=== PATIENT | female | born 1960 | race Hispanic/Latino ===

== ENCOUNTER 2017-12-02 08:47 | Outpatient (CLI) | payer BC | END 2017-12-02 08:48 | disposition home or self-care (01) | LOC: BICRAD 08:47 | PROVIDERS: ATTEND Internal Medicine Rheumatology | DX: M25.551 Pain in right hip (principal); M25.552 Pain in left hip; M06.00 Rheumatoid arthritis without rheumatoid factor, unspecified site; M47.898 Other spondylosis, sacral and sacrococcygeal region; M47.896 Other spondylosis, lumbar region | CPT/HCPCS: 72170 ==

== ENCOUNTER 2019-01-19 12:45 | Outpatient (CLI) | payer BC ==
--- NOTE | 2019-01-19 13:17 | RAD ---
Left RIBS 3 views HISTORY: Left chest wall pain. FINDINGS/IMPRESSION: No displaced rib fracture or pneumothorax are demonstrated.
== END 2019-01-19 12:46 | disposition home or self-care (01) ==
LOC: BICRAD 12:45
PROVIDERS: ATTEND Family Medicine
DX: R07.81 Pleurodynia (principal)

== ENCOUNTER 2019-02-16 12:16 | Outpatient (CLI) | payer BC ==
--- NOTE | 2019-02-16 13:31 | MRI ---
MR of the right shoulder without contrast INDICATION: Right shoulder pain. History of fall one week ago. TECHNIQUE: Sagittal T1, axial and coronal PD fat sat, sagittal and coronal T2 fat sat images were obt ained of the right shoulder. COMPARISON: None FINDINGS: Mild motion artifact limits image detail. Rotator cuff: There is a massive rotator cuff involving the supraspinatus and infraspinatus with retr action of the tendons to the level of the glenoid head. There is a partial-thickness articular surface tear involving the cranial to mid subscapularis at the footprint. The tear involves approxima tely 50% of the tendon thickness.. Glenohumeral joint: There is moderate chondrosis involving the anterior to central aspect of the tomy oid. There is moderate chondrosis involving the humeral head articular cartilage. Glenoid labrum: There is prominent degenerative fraying of the superior glenoid labrum. Biceps tendon and biceps anchor: The intra-articular long head of the biceps tendon is not visualized . There is metallic susceptibility artifact seen along the superior margin of the bicipital groove suspicious for prior long head of biceps tendon release and tenodesis. Acromion clavicular joint: There is severe AC joint osteoarthrosis with inferior and medial subluxati on of the clavicle in relationship to the acromial process, narrowing the subacromial outlet. The coracoclavicular ligaments appear intact. Subacromial subdeltoid space: Prominent fluid distention is seen within the subacromial subdeltoid bu rsa. Axillary region: No lymphadenopathy. Surrounding shoulder musculature: There is severe muscular atrophy of the supraspinatus and infraspin atus. IMPRESSION: 1. Massive rotator cuff tear involving the supraspinatus and infraspinatus with severe muscular atrop hy. 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 2. Findings most consistent with a prior biceps tenodesis. 3. High-grade partial thickness articular surface tear of the cranial to mid subscapularis tendon at the footprint. 4. Severe AC joint osteoarthrosis with inferior subluxation of the clavicular head in relationship to the acromion process likely either degenerative or posttraumatic in etiology. The clavicular head is subluxed inferior and medial in relationship to the acromial process narrowing the subacromial out let. 5. Some limitations to the exam as detailed above.
== END 2019-02-16 12:17 | disposition home or self-care (01) ==
LOC: SCSMRI 12:16
PROVIDERS: ATTEND Orthopaedic Surgery
DX: M25.511 Pain in right shoulder (principal); M75.101 Unspecified rotator cuff tear or rupture of right shoulder, not specified as traumatic; M62.511 Muscle wasting and atrophy, not elsewhere classified, right shoulder; M19.011 Primary osteoarthritis, right shoulder; S46.811A Strain of other muscles, fascia and tendons at shoulder and upper arm level, right arm, initial encounter; S43.119A Subluxation of unspecified acromioclavicular joint, initial encounter

== ENCOUNTER 2019-02-26 20:46 | Emergency (ER) | payer BC ==
[2019-02-26] MEDS ORDERED: Metoclopramide HCl 10 MG/2 ML VIAL ONE (21:14)
[2019-02-26] MEDS ORDERED: diphenhydrAMINE 50 MG/ML VIAL ONE (21:14)
[2019-02-26] MEDS ORDERED: Acetaminophen 500 MG TAB ONE (21:14)
--- NOTE | 2019-02-26 21:34 | CT ---
EXAM: CT brain without contrast HISTORY: Migraine headache for 4 days COMPARISON: 11/29/2005 TECHNIQUE: Multiple contiguous axial images were obtained and a CT of the brain without contrast. FINDINGS: The brain is normal in morphology and attenuation without focal lesions or confluent areas of infarction. There is no evidence of hydrocephalus, intracranial hemorrhage, or extra-axial fluid collection. The calvarium and overlying soft tissues are unremarkable. The visualized paranasal sinuses and masto id air cells are well aerated. IMPRESSION: No evidence of acute intracranial abnormality
== END 2019-02-26 22:40 | disposition home or self-care (01) ==
LOC: ERS 20:46
DX: R51 Headache (principal); F41.9 Anxiety disorder, unspecified
CPT/HCPCS: 70450; 96365; 96375; J1200; J2765

== ENCOUNTER 2020-09-03 12:26 | Emergency (ER) | payer BC, SELFPAY ==
[2020-09-03] MEDS ORDERED: Meclizine HCl 25 MG TAB ONE (12:47)
[2020-09-03 13:13] LABS: #Eosinphils 0.1 thou/uL (0.0-0.7); #Lymphocytes 1.6 thou/uL (1.20-3.40); #Monocytes 0.4 thou/uL (0.11-0.59); #Neutrophils 3.5 thou/uL (1.40-6.50); %Basophils 0.7 % (0.0-1.0); %Eosinophils 1.9 % (0.0-10.0); %Monocytes 7.8 % (0.0-10.0); %Neutrophils 61.6 % (42.0-75.0); Hemoglobin 14.4 g/dL (12.0-16.0); Mean Corpuscular HGB CONC 33.6 g/dL (32.0-36.0); Mean Corpuscular Hemoglobin 31.8 pg (27.0-31.0); Mean Corpuscular Volume 94.6 fL (78.0-98.0); Mean Platelet Volume 7.2 fL (7.4-10.4); Platelet Count 317 thou/uL (130-400); RBC Distribution Width 11.7 % (11.5-14.5); Red Blood Cell (RBC) Count 4.52 mill/uL (4.20-5.40); White Blood Cell (WBC) Count 5.7 thou/uL (4.8-10.8)
[2020-09-03 13:33] LABS: ALT (SGPT) 19 U/L (8-55); AST (SGOT) 20 U/L (5-34); Alkaline Phosphatase 80 U/L (40-110); Anion Gap 15 mmol/L (10-20); BUN (Urea Nitrogen) 19 mg/dL (9.8-20.1); Bilirubin, Total 0.9 mg/dL (0.2-1.2); Calc. Creatinine Clearance 0 mL/min (70-130); Calcium 9.2 mg/dL (7.8-10.44); Carbon Dioxide 26 mmol/L (22-29); Chloride 103 mmol/L (98-107); Globulin 3.6 g/dL (2.4-3.5); Glucose 84 mg/dL (70-105); Protein, Total 7.6 g/dL (6.0-8.3); Sodium 139 mmol/L (136-145)
--- NOTE | 2020-09-03 14:06 | CT ---
CT OF BRAIN PERFORMED WITHOUT CONTRAST ENHANCEMENT: History Headache and syncope. COMPARISON: A 03/15/2019 exam. FINDINGS: The ventricular and cisternal system is within normal limits. No signs of intracerebral hemorrhage o r extraaxial fluid collections. Mastoid air cells and visualized sinuses are clear. IMPRESSION: No acute intracranial abnormalities. POS: [facility]
[2020-09-04 02:15] LABS: SARS-CoV-2 MS2 Positive; SARS-CoV-2 N Gene Negative; SARS-CoV-2 S Gene Negative; SARS-CoV-2 by NAA Not Detected (NotDetected); SARS-CoV-2 orf1ab Negative
== END 2020-09-03 14:43 | disposition home or self-care (01) ==
LOC: ERS 12:26
DX: R42 Dizziness and giddiness (principal); J06.9 Acute upper respiratory infection, unspecified; Z20.828 Contact with and (suspected) exposure to other viral communicable diseases
CPT/HCPCS: 36415; 70450; 80053; 84443; 84484; 85025; 87635; 93005; U0003

== ENCOUNTER 2020-12-24 08:46 | Inpatient (IN) | payer SELFPAY ==
[2020-12-24] MEDS ORDERED: Ondansetron PF 4 MG/2 ML Vial ONE ×2 (08:58→11:00)
[2020-12-24] MEDS ORDERED: Fentanyl 100 MCG/2 ML VIAL ONE ×2 (08:58→13:02)
[2020-12-24 09:39] LABS: #Eosinphils 0.1 thou/uL (0.0-0.7); #Lymphocytes 2.3 thou/uL (1.20-3.40); #Monocytes 0.8 thou/uL (0.11-0.59); #Neutrophils 7.6 thou/uL (1.40-6.50); %Basophils 0.3 % (0.0-1.0); %Eosinophils 1.3 % (0.0-10.0); %Lymphocytes 21.2 % (21.0-51.0); %Monocytes 7.5 % (0.0-10.0); %Neutrophils 69.8 % (42.0-75.0); Hemoglobin 10.1 g/dL (12.0-16.0); Mean Corpuscular HGB CONC 32.8 g/dL (32.0-36.0); Mean Corpuscular Hemoglobin 31.6 pg (27.0-31.0); Mean Corpuscular Volume 96.4 fL (78.0-98.0); Mean Platelet Volume 7.3 fL (7.4-10.4); Platelet Count 228 thou/uL (130-400); RBC Distribution Width 11.6 % (11.5-14.5); Red Blood Cell (RBC) Count 3.21 mill/uL (4.20-5.40); White Blood Cell (WBC) Count 10.9 thou/uL (4.8-10.8)
[2020-12-24 09:54] LABS: INR-International Normal Ratio 1.3; Prothrombin Time 16.8 sec (12.0-14.7)
[2020-12-24 09:54] LABS: Bacteria/HPF None Seen HPF (None Seen); Bilirubin Negative (Negative); Blood, Urine Trace (Negative); Clarity Clear (Clear); Glucose, Urine (Dipstick) 100 mg/dL (Negative); Ketone, Urine Negative (Negative); Leukocyte Negative Leu/uL (Negative); Nitrite Negative (Negative); Protein, Urine (Dipstick) 10 mg/dL (Neg-Trace); RBC/HPF 0-3 HPF (0-3); Specific Gravity, Urine 1.023 (1.002-1.036); Squamous Epithelial 0-3 HPF (0-3); Urobilinogen Normal mg/dL (Less than 2); WBC/HPF 0-3 HPF (0-3); pH, Urine 6.5 (5.0-9.0)
[2020-12-24 09:55] LABS: PTT 21.4 sec (22.9-36.1)
[2020-12-24 10:12] LABS: ALT (SGPT) 24 U/L (8-55); AST (SGOT) 25 U/L (5-34); Albumin 2.4 g/dL (3.5-5.0); Alkaline Phosphatase 53 U/L (40-110); Anion Gap 15 mmol/L (10-20); BUN (Urea Nitrogen) 23 mg/dL (9.8-20.1); Bilirubin, Total 0.5 mg/dL (0.2-1.2); CK (CPK) 36 U/L (29-168); Calc. Creatinine Clearance 0 mL/min (70-130); Calcium 6.9 mg/dL (7.8-10.44); Carbon Dioxide 18 mmol/L (22-29); Chloride 109 mmol/L (98-107); Globulin 2.4 g/dL (2.4-3.5); Glucose 195 mg/dL (70-105); Lipase 30 U/L (8-78); Potassium 4.7 mmol/L (3.5-5.1); Protein, Total 4.8 g/dL (6.0-8.3); Sodium 137 mmol/L (136-145)
[2020-12-24] MEDS ORDERED: Fentanyl 250 MCG/5 ML VIAL ONE (10:26)
[2020-12-24] MEDS ORDERED: Norepinephrine 4 MG/4 ML VIAL ONE (10:47)
[2020-12-24] MEDS ORDERED: Phenylephrine 10 MG/ML VIAL ONE (10:47)
[2020-12-24] MEDS ORDERED: Glycopyrrolate 0.2 MG/ML 5 ML SYRINGE ONE (11:00)
[2020-12-24] MEDS ORDERED: Labetalol HCl 100 MG/20 ML VIAL ONE (11:00)
[2020-12-24] MEDS ORDERED: Calcium Chloride 1 GM/10 ML Abboject SYRINGE ONE (11:00)
[2020-12-24] MEDS ORDERED: Succinylcholine 200 MG/10 ml SYRINGE FS ONE (11:00)
[2020-12-24] MEDS ORDERED: PROPOFOL 200 MG/20 ML VIAL ONE (11:00)
[2020-12-24] MEDS ORDERED: diphenhydrAMINE 50 MG/ML VIAL ONE (11:00)
[2020-12-24 11:43] LABS: SARS-CoV-2 NAA Rapid Test Not Detected (NotDetected)
[2020-12-24] MEDS ORDERED: SUGAMMADEX SODIUM 200 MG/2 ML VIAL ONE (12:26)
[2020-12-24] MEDS ORDERED: Zolpidem Tartrate 5 MG TAB PO PRN (12:38)
[2020-12-24] MEDS ORDERED: diphenhydrAMINE 50 MG/ML VIAL IVP PRN (12:38)
[2020-12-24] MEDS ORDERED: HYDROmorphone 10 mg/100 ml CADD IVPB PRN (12:38)
[2020-12-24] MEDS ORDERED: Promethazine HCl 25 MG/ML VIAL IM PRN ×2 (12:38→15:14)
[2020-12-24] MEDS ORDERED: diphenhydrAMINE 25 MG CAP PO PRN (12:38)
[2020-12-24] MEDS ORDERED: Naloxone HCl 0.4 mg/ml Vial IV PRN (12:38)
[2020-12-24] MEDS ORDERED: diphenhydrAMINE 50 MG/ML VIAL IM PRN (12:38)
[2020-12-24] MEDS ORDERED: Communication Order-Pharmacy FS SCH (12:45)
[2020-12-24] MEDS ORDERED: Dextrose 5% in Water 1,000 ML IV PRN (15:14)
[2020-12-24] MEDS ORDERED: Ondansetron PF 4 MG/2 ML Vial IVP PRN (15:14)
[2020-12-24] MEDS ORDERED: Dextrose 50% Abboject 50 ML SYRINGE SLOW IVP PRN (15:14)
[2020-12-24] MEDS ORDERED: hydrALAZINE 20 MG/ML VIAL SLOW IVP PRN (15:14)
[2020-12-24] MEDS: D5 1/2 NS w/20 mEq KCL 1,000 ML IV SCH (16:14)
[2020-12-24 16:15] VITALS: BMI 32.2
[2020-12-24 17:19] LABS: Hemoglobin 14.8 g/dL (12.0-16.0)
[2020-12-24] MEDS: Famotidine 20 MG TAB PO SCH (21:40)
[2020-12-24] MEDS: Famotidine/PF 20 mg/2ml Vial SLOW IVP SCH (21:43)
[2020-12-25] MEDS: D5 1/2 NS w/20 mEq KCL 1,000 ML IV SCH ×4 (03:07→19:50)
[2020-12-25 05:52] LABS: Anion Gap 10 mmol/L (10-20); BUN (Urea Nitrogen) 13 mg/dL (9.8-20.1); Calc. Creatinine Clearance 86 mL/min (70-130); Calcium 7.5 mg/dL (7.8-10.44); Carbon Dioxide 23 mmol/L (22-29); Chloride 100 mmol/L (98-107); Glucose 136 mg/dL (70-105); Potassium 4.2 mmol/L (3.5-5.1); Sodium 129 mmol/L (136-145)
[2020-12-25 06:16] LABS: Mean Corpuscular Hemoglobin 29.4 pg (27.0-31.0); Mean Platelet Volume 7.8 fL (7.4-10.4); Platelet Count 204 thou/uL (130-400); RBC Distribution Width 14.7 % (11.5-14.5); Red Blood Cell (RBC) Count 5.08 mill/uL (4.20-5.40); White Blood Cell (WBC) Count 14.7 thou/uL (4.8-10.8)
[2020-12-25] MEDS: Famotidine 20 MG TAB PO SCH ×2 (07:44→19:49)
[2020-12-25] MEDS: Famotidine/PF 20 mg/2ml Vial SLOW IVP SCH ×2 (07:44→19:49)
[2020-12-25 07:55] LABS: Band 18 % (5-11); Lymphocytes 4 % (21-51); MDiff Complete? YES; Monocytes 9 % (0-10); Neutrophil 69 % (42-75)
[2020-12-25] MEDS ORDERED: Acetaminophen 500 MG TAB PO PRN (11:44)
[2020-12-25] MEDS ORDERED: Acetaminophen/Codeine 30-300mg Tablet PO PRN ×2 (15:53)
[2020-12-25] MEDS ORDERED: traMADol HCl 50 MG TAB PO PRN (16:15)
[2020-12-25] MEDS: traMADol HCl 50 MG TAB PO PRN ×2 (16:21→22:23)
[2020-12-25] MEDS: Acetaminophen 325 MG TAB PO PRN (17:45)
[2020-12-26] MEDS: Ondansetron PF 4 MG/2 ML Vial IVP PRN (05:24)
[2020-12-26] MEDS: Acetaminophen 325 MG TAB PO PRN ×3 (06:11→20:08)
[2020-12-26] MEDS: traMADol HCl 50 MG TAB PO PRN ×3 (06:12→20:08)
[2020-12-26] MEDS: Famotidine 20 MG TAB PO SCH ×2 (09:43→20:09)
[2020-12-26] MEDS: Famotidine/PF 20 mg/2ml Vial SLOW IVP SCH ×2 (09:47→20:09)
[2020-12-26 15:54] LABS: Actual Bicarbonate (HCO3a) 19.7 mEq/L (22-28); Analyzer IN Cardio OR; Base Excess (BEa) -5.3 mEq/L (-2.0 to +3.0); CO2 Tension 36.5 mmHg (35.0-45.0); Calcium, Ionized (arterial) 0.94 mmol/L (1.12-1.30); Carboxyhemoglobin (COHb) 0.3 gm% (0.0-3.0); Hemoglobin (Hb) 12.2 g/dL (12.0-16.0); O2 Tension (PaO2), arterial 292.2 mmHg (> 80.0); Potassium - ABG Lab 3.53 mmol/L (3.70-5.30); Puncture Site Arterial Line; pH, Arterial 7.35 (7.35-7.45)
[2020-12-27] MEDS: traMADol HCl 50 MG TAB PO PRN ×4 (02:03→21:23)
[2020-12-27] MEDS: Acetaminophen 325 MG TAB PO PRN ×4 (02:04→21:23)
[2020-12-27] MEDS: Famotidine/PF 20 mg/2ml Vial SLOW IVP SCH ×2 (08:05→19:18)
[2020-12-27] MEDS: Famotidine 20 MG TAB PO SCH ×2 (08:09→19:17)
[2020-12-27] MEDS ORDERED: Amlodipine 10 MG TAB PO SCH (09:00)
[2020-12-27] MEDS ORDERED: Losartan 25 MG TAB PO SCH (09:00)
[2020-12-27] MEDS: Carvedilol 25 MG TAB PO SCH ×2 (09:04→19:17)
[2020-12-27] MEDS ORDERED: Milk Of Magnesia 30 ML UDCUP PO SCH (11:15)
[2020-12-27] MEDS ORDERED: Acthib 0.5 ML VIAL IM ONE (13:00)
[2020-12-27] MEDS ORDERED: Meningococcal Vaccine 0.5ML VIAL (MENACTRA) IM ONE (13:00)
[2020-12-27] MEDS: Ondansetron PF 4 MG/2 ML Vial IVP PRN (15:27)
[2020-12-28] MEDS ORDERED: Prevnar 13-Val Conj/PF 0.5 ML SYRINGE IM ONE (09:00)
[2020-12-28] MEDS: Famotidine/PF 20 mg/2ml Vial SLOW IVP SCH (09:19)
[2020-12-28] MEDS: Carvedilol 25 MG TAB PO SCH (09:56)
[2020-12-28] MEDS: Famotidine 20 MG TAB PO SCH (09:56)
[2020-12-28] MEDS: traMADol HCl 50 MG TAB PO PRN (10:00)
[2020-12-28] MEDS: Acetaminophen 325 MG TAB PO PRN (10:01)
[2020-12-28 12:17] VITALS: BP 119/71; TEMP 97.6
== END 2020-12-28 12:10 | disposition home or self-care (01) | DRG 799 ==
LOC: ERS 08:46 → SDC 10:36 → CCU 11:00 → SJJU 11:10 → SURG A 12:30 → SJJU 15:03
PROVIDERS: ADMIT Surgery; ATTEND Surgery
PROC: 07BP0ZZ Excision of Spleen, Open Approach (ICD-10-PCS; principal; 2020-12-24)
DX: D73.5 Infarction of spleen (principal); R57.8 Other shock; M19.90 Unspecified osteoarthritis, unspecified site; G43.909 Migraine, unspecified, not intractable, without status migrainosus; F41.9 Anxiety disorder, unspecified; I10 Essential (primary) hypertension; Z90.49 Acquired absence of other specified parts of digestive tract; Z90.710 Acquired absence of both cervix and uterus; Z91.040 Latex allergy status; Z88.6 Allergy status to analgesic agent; Z88.0 Allergy status to penicillin; Z88.8 Allergy status to other drugs, medicaments and biological substances; Z79.899 Other long term (current) drug therapy; Z88.1 Allergy status to other antibiotic agents; Z20.822 Contact with and (suspected) exposure to COVID-19
CPT/HCPCS: 36415; 36430; 51701; 71045; 71275; 74018; 74174; 80048; 80053; 81003; 81015; 82550; 82805; 83605; 83690; 83880; 84484; 85025; 85610; 85730; 86850; 86900; 86901; 87040; 87149; 88305; 90471; 90648; 90670; 90733; 93005; 96374; 96375; G0009; J1200; J2370; J2405; J2550; J2704; J3010; J3480; P9016; P9035; P9059; Q0163; S0028; U0002

== ENCOUNTER 2021-07-13 08:48 | Outpatient (CLI) | payer BC ==
[2021-07-13 11:29] LABS: Anion Gap 14 mmol/L (10-20); BUN (Urea Nitrogen) 22 mg/dL (9.8-20.1); Calc. Creatinine Clearance 0 mL/min (70-130); Calcium 9.3 mg/dL (7.8-10.44); Carbon Dioxide 26 mmol/L (22-29); Chloride 106 mmol/L (98-107); Glucose 89 mg/dL (70-105); Sodium 141 mmol/L (136-145)
[2021-07-13 17:27] LABS: SARS-CoV-2 PCR by NAA Not Detected (NotDetected)
== END 2021-07-13 08:49 | disposition home or self-care (01) ==
LOC: LABBT 08:48
PROVIDERS: ATTEND Surgery
DX: Z01.812 Encounter for preprocedural laboratory examination (principal); K43.2 Incisional hernia without obstruction or gangrene; Z20.822 Contact with and (suspected) exposure to COVID-19
CPT/HCPCS: 80048; U0003; U0005

== ENCOUNTER 2021-07-18 08:02 | Day surgery (SDC) | payer BC ==
[2021-07-17 11:46] VITALS: BMI 35.2
[2021-07-18] MEDS ORDERED: ceFAZolin 2 GM/DEX 5% 100 ML BAG ONE (08:44)
[2021-07-18] MEDS ORDERED: Levofloxacin 500 mg/D5W 100 ml Premix Bag ONE (10:51)
[2021-07-18] MEDS ORDERED: Midazolam HCl 2 mg/2 ml Vial ONE (10:51)
[2021-07-18] MEDS ORDERED: Bupivacaine 0.25% HCL 30 ML VIAL ONE (11:07)
[2021-07-18] MEDS ORDERED: Lidocaine 1% w/Epinephrine 1:100K 20 ML VIAL ONE (11:07)
[2021-07-18] MEDS ORDERED: Fentanyl 100 MCG/2 ML VIAL ONE ×4 (11:08→14:37)
[2021-07-18] MEDS ORDERED: SUGAMMADEX SODIUM 200 MG/2 ML VIAL ONE (11:08)
[2021-07-18] MEDS ORDERED: Famotidine/PF 20 mg/2ml Vial ONE (11:08)
[2021-07-18] MEDS ORDERED: Ketorolac Tromethamine 30 MG/ML VIAL ONE (11:22)
[2021-07-18] MEDS ORDERED: Lidocaine 1% PF 5 ML VIAL ONE (11:22)
[2021-07-18] MEDS ORDERED: Ondansetron PF 4 MG/2 ML Vial ONE (11:22)
[2021-07-18] MEDS ORDERED: Metoclopramide HCl 10 MG/2 ML VIAL ONE (11:22)
[2021-07-18] MEDS ORDERED: PROPOFOL 200 MG/20 ML VIAL ONE (11:22)
[2021-07-18] MEDS ORDERED: Rocuronium Bromide 10 MG/ML (10ML VIAL) ONE (11:22)
== END 2021-07-18 16:07 | disposition home or self-care (01) ==
LOC: SDC 08:02
PROVIDERS: ATTEND Surgery
PROC: 0WUF4JZ Supplement Abdominal Wall with Synthetic Substitute, Percutaneous Endoscopic Approach (ICD-10-PCS; principal; 2021-07-18)
DX: K43.2 Incisional hernia without obstruction or gangrene (principal); E11.9 Type 2 diabetes mellitus without complications; E78.5 Hyperlipidemia, unspecified; I10 Essential (primary) hypertension; Z79.899 Other long term (current) drug therapy; Z88.0 Allergy status to penicillin; Z88.1 Allergy status to other antibiotic agents; Z88.5 Allergy status to narcotic agent; Z88.7 Allergy status to serum and vaccine; Z91.040 Latex allergy status; Z91.048 Other nonmedicinal substance allergy status
CPT/HCPCS: J1885; J1956; J2250; J2405; J2704; J2765; J3010; S0020; S0028

== ENCOUNTER 2021-09-27 09:15 | Outpatient (CLI) | payer BC | END 2021-09-27 09:16 | disposition home or self-care (01) | LOC: RAD 09:15 | PROVIDERS: ATTEND Internal Medicine Endocrinology, Diabetes & Metabolism | DX: M54.50 Low back pain, unspecified (principal); M81.0 Age-related osteoporosis without current pathological fracture; S62.101S Fracture of unspecified carpal bone, right wrist, sequela; M47.816 Spondylosis without myelopathy or radiculopathy, lumbar region | CPT/HCPCS: 72110 ==

== ENCOUNTER 2021-10-03 08:50 | Outpatient (CLI) | payer BC | END 2021-10-03 08:51 | disposition home or self-care (01) | LOC: BICMAMMO 08:50 | PROVIDERS: ATTEND Family Medicine | DX: Z12.31 Encounter for screening mammogram for malignant neoplasm of breast (principal); M81.0 Age-related osteoporosis without current pathological fracture; Z80.3 Family history of malignant neoplasm of breast; M85.852 Other specified disorders of bone density and structure, left thigh; M85.851 Other specified disorders of bone density and structure, right thigh | CPT/HCPCS: 77063; 77067; 77080 ==

== ENCOUNTER 2022-03-06 15:25 | Emergency (ER) | payer BC ==
[2022-03-06] MEDS ORDERED: Ketorolac Tromethamine 30 MG/ML VIAL ONE (19:58)
== END 2022-03-06 21:55 | disposition home or self-care (01) ==
LOC: ERS 15:25
DX: S82.002A Unspecified fracture of left patella, initial encounter for closed fracture (principal); M79.631 Pain in right forearm; I10 Essential (primary) hypertension; Z79.899 Other long term (current) drug therapy; W19.XXXA Unspecified fall, initial encounter
CPT/HCPCS: 27520; 96372; J1885

== ENCOUNTER 2023-03-20 08:18 | Outpatient (CLI) | payer BC ==
[2023-03-20] MEDS ORDERED: Iopamidol 370 76% 100 ML VIAL ONE (12:45)
== END 2023-03-20 08:19 | disposition home or self-care (01) ==
LOC: CT 08:18
PROVIDERS: ATTEND Surgery
DX: K43.2 Incisional hernia without obstruction or gangrene (principal); K44.9 Diaphragmatic hernia without obstruction or gangrene; K57.30 Diverticulosis of large intestine without perforation or abscess without bleeding; M47.816 Spondylosis without myelopathy or radiculopathy, lumbar region; M43.16 Spondylolisthesis, lumbar region; M48.061 Spinal stenosis, lumbar region without neurogenic claudication; K46.9 Unspecified abdominal hernia without obstruction or gangrene; Z98.890 Other specified postprocedural states
CPT/HCPCS: 74177; 82565; Q9967

== ENCOUNTER 2023-07-16 08:08 | Emergency (ER) | payer BC, MEDICAID, SELFPAY ==
[2023-07-16] MEDS ORDERED: Ondansetron PF 4 MG/2 ML Vial ONE (08:38)
[2023-07-16] MEDS ORDERED: fentaNYL 50 mcg/mL 1 mL Vial ONE ×2 (08:41→11:21)
[2023-07-16 08:48] LABS: #Basophils 0.1 thou/uL (0.0-0.2); #Eosinphils 0.2 thou/uL (0.0-0.7); #Monocytes 0.9 thou/uL (0.11-0.59); #Neutrophils 5.4 thou/uL (1.40-6.50); %Basophils 0.7 % (0.0-1.0); %Eosinophils 1.9 % (0.0-10.0); %Lymphocytes 21.8 % (21.0-51.0); %Neutrophils 64.1 % (42.0-75.0); Hematocrit 44.1 % (36.0-47.0); Hemoglobin 14.8 g/dL (12.0-16.0); Mean Corpuscular HGB CONC 33.6 g/dL (32.0-36.0); Mean Corpuscular Hemoglobin 30.8 pg (27.0-31.0); Mean Corpuscular Volume 91.7 fl (78.0-98.0); Mean Platelet Volume 8.8 fL (7.4-10.4); Platelet Count 441 10x3/uL (130-400); RBC Distribution Width 12.5 % (11.5-14.5); Red Blood Cell (RBC) Count 4.81 mill/uL (4.20-5.40); White Blood Cell (WBC) Count 8.4 10x3/uL (4.8-10.8)
[2023-07-16 09:19] LABS: Troponin I Less than 0.010 ng/mL (< 0.028)
[2023-07-16 09:30] LABS: ALT (SGPT) 23 U/L (8-55); Albumin 4.3 g/dL (3.4-4.8); Alkaline Phosphatase 65 U/L (40-110); BUN (Urea Nitrogen) 16 mg/dL (9.8-20.1); Bilirubin, Total 0.4 mg/dL (0.2-1.2); Calc. Creatinine Clearance 0 mL/min (70-130); Calcium 9.2 mg/dL (7.8-10.44); Carbon Dioxide 21 mmol/L (23-31); Chloride 98 mmol/L (98-107); Estimated GFR 73; Glucose 92 mg/dL (80-115); Lipase 56 U/L (8-78); Sodium 130 mmol/L (136-145)
[2023-07-16 09:39] LABS: Potassium 4.2 mmol/L (3.5-5.1)
[2023-07-16 09:40] LABS: Globulin 3.6 g/dL (2.4-3.5); Protein, Total 7.9 g/dL (5.8-8.1)
[2023-07-16 09:45] LABS: AST (SGOT) 22 U/L (5-34); Anion Gap 15 mmol/L (10-20)
== END 2023-07-16 12:56 | disposition home or self-care (01) ==
LOC: ERS 08:08
DX: C49.A2 Gastrointestinal stromal tumor of stomach (principal); I10 Essential (primary) hypertension; Z79.899 Other long term (current) drug therapy
CPT/HCPCS: 71045; 74177; 80053; 83605; 83690; 83735; 83880; 84484; 85025; 96374; 96375; 96376; J2405; J3010

== ENCOUNTER 2023-09-26 16:18 | Emergency (ER) | payer BC ==
[2023-09-26 17:13] LABS: #Basophils 0.1 thou/uL (0.0-0.2); #Eosinphils 0.2 thou/uL (0.0-0.7); #Monocytes 0.9 thou/uL (0.11-0.59); #Neutrophils 6.4 thou/uL (1.40-6.50); %Basophils 0.7 % (0.0-1.0); %Eosinophils 2.3 % (0.0-10.0); %Lymphocytes 16.1 % (21.0-51.0); %Monocytes 9.9 % (0.0-10.0); %Neutrophils 70.7 % (42.0-75.0); Hematocrit 43.9 % (36.0-47.0); Hemoglobin 14.6 g/dL (12.0-16.0); Mean Corpuscular HGB CONC 33.3 g/dL (32.0-36.0); Mean Corpuscular Hemoglobin 31.1 pg (27.0-31.0); Mean Corpuscular Volume 93.6 fl (78.0-98.0); Mean Platelet Volume 9.3 fL (7.4-10.4); Platelet Count 404 10x3/uL (130-400); RBC Distribution Width 13.4 % (11.5-14.5); Red Blood Cell (RBC) Count 4.69 mill/uL (4.20-5.40)
[2023-09-26 17:38] LABS: ALT (SGPT) 18 U/L (8-55); AST (SGOT) 19 U/L (5-34); Albumin 3.7 g/dL (3.4-4.8); Alkaline Phosphatase 73 U/L (40-110); Anion Gap 14 mmol/L (10-20); BUN (Urea Nitrogen) 19 mg/dL (9.8-20.1); Bilirubin, Total 0.4 mg/dL (0.2-1.2); Calc. Creatinine Clearance 0 mL/min (70-130); Carbon Dioxide 21 mmol/L (23-31); Chloride 103 mmol/L (98-107); Estimated GFR 80; Globulin 4.1 g/dL (2.4-3.5); Glucose 156 mg/dL (80-115); Lipase 47 U/L (8-78); Potassium 4.2 mmol/L (3.5-5.1); Protein, Total 7.8 g/dL (5.8-8.1); Sodium 134 mmol/L (136-145)
[2023-09-26] MEDS ORDERED: Ketorolac Tromethamine 30 MG (1 mL) VIAL ONE (19:25)
== END 2023-09-26 19:54 | disposition home or self-care (01) ==
LOC: ERS 16:18
DX: K43.9 Ventral hernia without obstruction or gangrene (principal); I10 Essential (primary) hypertension; Z79.899 Other long term (current) drug therapy
CPT/HCPCS: 36415; 74176; 80053; 83690; 85025; 96372; J1885

== ENCOUNTER 2023-10-02 06:06 | Inpatient (IN) | payer BC ==
[2023-10-01 10:37] VITALS: BMI 34.0
[2023-10-02] MEDS ORDERED: Lidocaine 1% PF 5 ML VIAL ONE (06:47)
[2023-10-02] MEDS ORDERED: Rocuronium Bromide 10 MG/ML (10ML VIAL) ONE (06:47)
[2023-10-02] MEDS ORDERED: PROPOFOL 20 ML ONE (06:47)
[2023-10-02] MEDS ORDERED: fentaNYL PF 100 MCG/2 ML SYRINGE ONE ×2 (06:47→10:39)
[2023-10-02] MEDS ORDERED: Midazolam HCl 2 mg/2 ml Vial ONE (07:31)
[2023-10-02] MEDS ORDERED: Scopolamine 1 mg/72 hour Patch ONE (07:31)
[2023-10-02] MEDS ORDERED: LevoFLOXacin D5W 500 mg (100 mL) BAG ONE (07:33)
[2023-10-02] MEDS ORDERED: diphenhydrAMINE 50 MG/ML VIAL ONE (07:49)
[2023-10-02] MEDS ORDERED: Dexamethasone 20 MG/5 ML VIAL ONE (08:07)
[2023-10-02] MEDS ORDERED: ePHEDrine Sulfate 50 MG/10 ML VIAL ONE (08:08)
[2023-10-02] MEDS ORDERED: fentaNYL 50 mcg/mL 1 mL Vial ONE ×3 (08:51→11:46)
[2023-10-02] MEDS ORDERED: Ondansetron PF 4 MG/2 ML Vial ONE (10:08)
[2023-10-02] MEDS ORDERED: Labetalol HCl 100 MG/20 ML VIAL ONE (10:08)
[2023-10-02] MEDS ORDERED: SUGAMMADEX SODIUM 200 MG/2 ML VIAL ONE (10:11)
[2023-10-02] MEDS ORDERED: Ondansetron HCl/PF 4 MG/2 ML Vial IVP PRN (10:25)
[2023-10-02] MEDS ORDERED: diphenhydrAMINE 50 MG/ML VIAL IVP PRN (10:25)
[2023-10-02] MEDS ORDERED: FENTANYL 500 MCG/10 ML VIAL 2,000 MCG in Sodium Chloride 0.9% 60 ML IV PRN (10:25)
[2023-10-02] MEDS ORDERED: Promethazine HCl 25 MG/ML VIAL IM PRN ×3 (10:25→16:40)
[2023-10-02] MEDS ORDERED: diphenhydrAMINE 25 MG CAP PO PRN (10:25)
[2023-10-02] MEDS ORDERED: diphenhydrAMINE 50 MG/ML VIAL IM PRN (10:25)
[2023-10-02] MEDS ORDERED: Naloxone HCl 0.4 mg/ml Vial IV PRN (10:25)
[2023-10-02] MEDS ORDERED: Ondansetron PF 4 MG/2 ML Vial IVP PRN (10:25)
[2023-10-02] MEDS ORDERED: Communication Order-Pharmacy FS PRN (10:30)
[2023-10-02] MEDS ORDERED: D5 1/2 NS w/20 mEq KCL 1,000 ML ONE (11:09)
[2023-10-02] MEDS ORDERED: hydrALAZINE 20 MG/ML VIAL ONE (11:25)
[2023-10-02] MEDS: D5 1/2 NS w/20 mEq KCL 1,000 ML IV SCH ×2 (13:00→22:04)
[2023-10-02] MEDS ORDERED: Ipratropium/Albuterol 3 ML NEB NEB PRN (16:40)
[2023-10-02] MEDS ORDERED: Glucagon 1 MG/ML KIT IM PRN (16:40)
[2023-10-02] MEDS ORDERED: hydrALAZINE 20 MG/ML VIAL SLOW IVP PRN (16:40)
[2023-10-02] MEDS ORDERED: Dextrose 5% in Water 1,000 ML IV PRN (16:40)
[2023-10-02] MEDS ORDERED: Albuterol 200 PUFF (6.7GM INHALER) INH PRN (16:40)
[2023-10-02] MEDS ORDERED: Dextrose 50% Abboject 50 ML SYRINGE SLOW IVP PRN (16:40)
[2023-10-02] MEDS ORDERED: Ketorolac Tromethamine 30 MG (1 mL) VIAL IVP SCH (20:30)
[2023-10-02] MEDS: Carvedilol 25 MG TAB PO SCH (20:35)
[2023-10-02] MEDS: Famotidine 20 MG TAB PO SCH (20:35)
[2023-10-02] MEDS: DULoxetine 30 MG CAP PO SCH (20:35)
[2023-10-02] MEDS: risperiDONE 0.25 MG TAB PO SCH (20:35)
[2023-10-02] MEDS: Famotidine/PF 20 mg/2ml Vial SLOW IVP SCH (20:40)
[2023-10-02] MEDS ORDERED: clonazePAM 0.5 MG TAB PO SCH ×2 (21:00)
[2023-10-03] MEDS: D5 1/2 NS w/20 mEq KCL 1,000 ML IV SCH (06:20)
[2023-10-03 06:44] LABS: #Monocytes 1.5 thou/uL (0.11-0.59); #Neutrophils 9.3 thou/uL (1.40-6.50); %Basophils 0.2 % (0.0-1.0); %Eosinophils 0.2 % (0.0-10.0); %Lymphocytes 13.7 % (21.0-51.0); %Monocytes 11.6 % (0.0-10.0); %Neutrophils 73.9 % (42.0-75.0); Hematocrit 36.8 % (36.0-47.0); Hemoglobin 12.2 g/dL (12.0-16.0); Mean Corpuscular HGB CONC 33.2 g/dL (32.0-36.0); Mean Corpuscular Hemoglobin 30.7 pg (27.0-31.0); Mean Corpuscular Volume 92.7 fl (78.0-98.0); Mean Platelet Volume 9.3 fL (7.4-10.4); Platelet Count 337 10x3/uL (130-400); RBC Distribution Width 13.1 % (11.5-14.5); Red Blood Cell (RBC) Count 3.97 mill/uL (4.20-5.40); White Blood Cell (WBC) Count 12.6 10x3/uL (4.8-10.8)
[2023-10-03 07:08] LABS: Anion Gap 11 mmol/L (10-20); BUN (Urea Nitrogen) 12 mg/dL (9.8-20.1); Calc. Creatinine Clearance 96 mL/min (70-130); Calcium 7.6 mg/dL (7.8-10.44); Carbon Dioxide 24 mmol/L (23-31); Chloride 94 mmol/L (98-107); Estimated GFR 87; Glucose 117 mg/dL (80-115); Potassium 4.3 mmol/L (3.5-5.1); Sodium 125 mmol/L (136-145)
[2023-10-03] MEDS: Enoxaparin 40 MG (0.4 mL) SYRINGE SC SCH (08:56)
[2023-10-03] MEDS: Ketorolac Tromethamine 30 MG (1 mL) VIAL IVP PRN ×2 (08:56→15:03)
[2023-10-03] MEDS: Famotidine 20 MG TAB PO SCH ×2 (08:56→21:41)
[2023-10-03] MEDS: Famotidine/PF 20 mg/2ml Vial SLOW IVP SCH ×2 (08:57→21:43)
[2023-10-03] MEDS: DULoxetine 30 MG CAP PO SCH ×2 (08:58→21:41)
[2023-10-03] MEDS ORDERED: Escitalopram Oxalate 10 mg Tablet PO SCH (09:00)
[2023-10-03] MEDS: Carvedilol 25 MG TAB PO SCH ×2 (09:00→21:40)
[2023-10-03] MEDS ORDERED: Fentanyl 100 MCG/2 ML VIAL SLOW IVP PRN (10:35)
[2023-10-03] MEDS ORDERED: HYDROcodone/Acetaminophen 7.5/325 mg Tablet PO PRN ×2 (10:35)
[2023-10-03] MEDS ORDERED: oxyCODONE 5 MG TAB PO PRN (11:14)
[2023-10-03] MEDS ORDERED: fentaNYL 50 mcg/mL 1 mL Vial SLOW IVP PRN (11:16)
[2023-10-03] MEDS: oxyCODONE 5 MG TAB PO PRN ×2 (11:47→17:28)
[2023-10-03] MEDS: Acetaminophen 500 MG TAB PO SCH ×2 (11:47→17:19)
[2023-10-03] MEDS: Sodium Chloride 0.9% 1,000 ML IV SCH (11:48)
[2023-10-03] MEDS: Ondansetron PF 4 MG/2 ML Vial IVP PRN (17:19)
[2023-10-03] MEDS: clonazePAM 0.5 MG TAB PO SCH (21:41)
[2023-10-03] MEDS: risperiDONE 0.25 MG TAB PO SCH (21:41)
[2023-10-03] MEDS: Escitalopram Oxalate 10 mg Tablet PO SCH (21:41)
[2023-10-04] MEDS: Acetaminophen 500 MG TAB PO SCH ×4 (00:01→17:45)
[2023-10-04] MEDS: Ketorolac Tromethamine 30 MG (1 mL) VIAL IVP PRN ×2 (00:01→05:53)
[2023-10-04] MEDS: Sodium Chloride 0.9% 1,000 ML IV SCH ×2 (05:50→16:00)
[2023-10-04] MEDS: Famotidine 20 MG TAB PO SCH ×2 (08:12→20:26)
[2023-10-04] MEDS: Enoxaparin 40 MG (0.4 mL) SYRINGE SC SCH (08:12)
[2023-10-04] MEDS: Carvedilol 25 MG TAB PO SCH ×2 (08:12→20:26)
[2023-10-04] MEDS: Famotidine/PF 20 mg/2ml Vial SLOW IVP SCH ×2 (08:13→21:14)
[2023-10-04] MEDS ORDERED: traMADol HCl 50 MG TAB PO PRN (11:13)
[2023-10-04] MEDS ORDERED: Polyethylene Glycol 3350 17 GM Packet PO SCH (11:14)
[2023-10-04] MEDS: traMADol HCl 50 MG TAB PO PRN (11:28)
[2023-10-04] MEDS: HYDROcodone/Acetaminophen 7.5/325 mg Tablet PO PRN (15:58)
[2023-10-04] MEDS: risperiDONE 0.25 MG TAB PO SCH (20:26)
[2023-10-04] MEDS: clonazePAM 0.5 MG TAB PO SCH (20:26)
[2023-10-04] MEDS: Escitalopram Oxalate 10 mg Tablet PO SCH (20:26)
[2023-10-04] MEDS: DULoxetine 30 MG CAP PO SCH (20:26)
[2023-10-05] MEDS: Acetaminophen 500 MG TAB PO SCH ×5 (00:20→23:24)
[2023-10-05] MEDS: Sodium Chloride 0.9% 1,000 ML IV SCH (05:51)
[2023-10-05] MEDS ORDERED: Polyethylene Glycol 3350 17 GM Packet PO SCH (09:00)
[2023-10-05 09:29] LABS: Anion Gap 11 mmol/L (10-20); BUN (Urea Nitrogen) 7 mg/dL (9.8-20.1); Calc. Creatinine Clearance 98 mL/min (70-130); Carbon Dioxide 25 mmol/L (23-31); Chloride 100 mmol/L (98-107); Estimated GFR 88; Glucose 85 mg/dL (80-115); Potassium 3.9 mmol/L (3.5-5.1); Sodium 132 mmol/L (136-145)
[2023-10-05] MEDS: Enoxaparin 40 MG (0.4 mL) SYRINGE SC SCH (10:02)
[2023-10-05] MEDS: Famotidine 20 MG TAB PO SCH ×2 (10:02→21:21)
[2023-10-05] MEDS: Famotidine/PF 20 mg/2ml Vial SLOW IVP SCH (10:02)
[2023-10-05] MEDS: Carvedilol 25 MG TAB PO SCH ×2 (10:03→21:21)
[2023-10-05] MEDS ORDERED: Sodium Chloride 0.9% 1,000 ML IV SCH (13:30)
[2023-10-05] MEDS: HYDROcodone/Acetaminophen 7.5/325 mg Tablet PO PRN (14:13)
[2023-10-05] MEDS: Ondansetron PF 4 MG/2 ML Vial IVP PRN (14:16)
[2023-10-05] MEDS: Ketorolac Tromethamine 30 MG (1 mL) VIAL IVP PRN (14:16)
[2023-10-05] MEDS: clonazePAM 0.5 MG TAB PO SCH (21:20)
[2023-10-05] MEDS: Escitalopram Oxalate 10 mg Tablet PO SCH (21:20)
[2023-10-05] MEDS: risperiDONE 0.25 MG TAB PO SCH (21:20)
[2023-10-05] MEDS: DULoxetine 30 MG CAP PO SCH (21:21)
[2023-10-05] MEDS: Polyethylene Glycol 3350 17 GM Packet PO SCH (21:22)
[2023-10-06] MEDS: Acetaminophen 500 MG TAB PO SCH ×4 (05:35→23:24)
[2023-10-06] MEDS: Famotidine 20 MG TAB PO SCH ×2 (10:18→20:25)
[2023-10-06] MEDS: Polyethylene Glycol 3350 17 GM Packet PO SCH ×2 (10:18→20:24)
[2023-10-06] MEDS: Enoxaparin 40 MG (0.4 mL) SYRINGE SC SCH (10:19)
[2023-10-06] MEDS: Carvedilol 25 MG TAB PO SCH ×2 (10:19→20:25)
[2023-10-06] MEDS: HYDROcodone/Acetaminophen 7.5/325 mg Tablet PO PRN ×2 (10:35→20:28)
[2023-10-06] MEDS: Ketorolac Tromethamine 30 MG (1 mL) VIAL IVP PRN (10:36)
[2023-10-06] MEDS: traMADol HCl 50 MG TAB PO PRN ×2 (12:11→16:57)
[2023-10-06] MEDS: Escitalopram Oxalate 10 mg Tablet PO SCH (20:24)
[2023-10-06] MEDS: DULoxetine 30 MG CAP PO SCH (20:24)
[2023-10-06] MEDS: risperiDONE 0.25 MG TAB PO SCH (20:25)
[2023-10-06] MEDS: clonazePAM 0.5 MG TAB PO SCH (20:25)
[2023-10-07] MEDS: Acetaminophen 500 MG TAB PO SCH (05:42)
[2023-10-07] MEDS ORDERED: Acetaminophen 325 MG TAB PO PRN (07:30)
[2023-10-07] MEDS: Polyethylene Glycol 3350 17 GM Packet PO SCH ×2 (09:06→20:54)
[2023-10-07] MEDS: Enoxaparin 40 MG (0.4 mL) SYRINGE SC SCH (09:06)
[2023-10-07] MEDS: Carvedilol 25 MG TAB PO SCH ×2 (09:06→20:53)
[2023-10-07] MEDS: HYDROcodone/Acetaminophen 7.5/325 mg Tablet PO PRN ×2 (09:07→15:19)
[2023-10-07] MEDS: Famotidine 20 MG TAB PO SCH ×2 (09:07→20:53)
[2023-10-07] MEDS: traMADol HCl 50 MG TAB PO PRN (12:47)
[2023-10-07] MEDS ORDERED: Milk Of Magnesia 30 ML UDCUP PO SCH (17:05)
[2023-10-07] MEDS: DULoxetine 30 MG CAP PO SCH (20:53)
[2023-10-07] MEDS: Escitalopram Oxalate 10 mg Tablet PO SCH (20:53)
[2023-10-07] MEDS: clonazePAM 0.5 MG TAB PO SCH (20:53)
[2023-10-07] MEDS: risperiDONE 0.25 MG TAB PO SCH (20:53)
[2023-10-08] MEDS: Famotidine 20 MG TAB PO SCH (09:27)
[2023-10-08] MEDS: Polyethylene Glycol 3350 17 GM Packet PO SCH (09:28)
[2023-10-08] MEDS: Enoxaparin 40 MG (0.4 mL) SYRINGE SC SCH (09:28)
[2023-10-08] MEDS: Carvedilol 25 MG TAB PO SCH (09:28)
[2023-10-08] MEDS: traMADol HCl 50 MG TAB PO PRN (10:54)
[2023-10-08 15:19] VITALS: BP 137/83; TEMP 98.6
== END 2023-10-08 16:45 | disposition home or self-care (01) | DRG 355 ==
LOC: SDC 06:06 → SJJU 11:00
PROVIDERS: ADMIT Surgery; ATTEND Surgery
PROC: 0WUF0JZ Supplement Abdominal Wall with Synthetic Substitute, Open Approach (ICD-10-PCS; principal; 2023-10-02)
DX: K43.2 Incisional hernia without obstruction or gangrene (principal); E11.9 Type 2 diabetes mellitus without complications; E78.5 Hyperlipidemia, unspecified; I10 Essential (primary) hypertension; Z98.890 Other specified postprocedural states; Z98.51 Tubal ligation status; Z90.49 Acquired absence of other specified parts of digestive tract; Z82.49 Family history of ischemic heart disease and other diseases of the circulatory system; Z83.3 Family history of diabetes mellitus; Z79.899 Other long term (current) drug therapy; Z88.0 Allergy status to penicillin; Z88.8 Allergy status to other drugs, medicaments and biological substances
CPT/HCPCS: 36415; 80048; 85025; C1781; J0360; J1100; J1200; J1650; J1885; J1956; J2250; J2405; J2704; J3010; J3480; J3490; J7050; S0028

== ENCOUNTER 2023-11-01 17:43 | Emergency (ER) | payer BC ==
[~2023-11-01 17:43] MED LIST: Iopamidol-370 76% 500 ML MDV (1 ML CHARGE) ONE
[2023-11-01] MEDS ORDERED: Ondansetron PF 4 MG/2 ML Vial ONE (18:19)
[2023-11-01] MEDS ORDERED: Ketorolac Tromethamine 30 MG (1 mL) VIAL ONE (18:19)
[2023-11-01] MEDS ORDERED: fentaNYL 50 mcg/mL 1 mL Vial ONE ×2 (18:19→20:11)
[2023-11-01 18:34] LABS: #Basophils 0.1 thou/uL (0.0-0.2); #Eosinphils 0.3 thou/uL (0.0-0.7); #Monocytes 1.2 thou/uL (0.11-0.59); #Neutrophils 7.7 thou/uL (1.40-6.50); %Basophils 0.7 % (0.0-1.0); %Eosinophils 2.6 % (0.0-10.0); %Lymphocytes 15.4 % (21.0-51.0); %Monocytes 10.8 % (0.0-10.0); Mean Corpuscular HGB CONC 34.1 g/dL (32.0-36.0); Mean Corpuscular Hemoglobin 31.3 pg (27.0-31.0); Mean Corpuscular Volume 91.5 fl (78.0-98.0); Mean Platelet Volume 8.8 fL (7.4-10.4); Platelet Count 399 10x3/uL (130-400); Red Blood Cell (RBC) Count 4.48 mill/uL (4.20-5.40)
[2023-11-01 18:50] LABS: Bacteria/HPF 2+ HPF (None Seen); Bilirubin Negative (Negative); Blood, Urine 2+ (Negative); CAUTI Indications for Culture Dysuria,urgency,freq; Clarity Turbid (Clear); Glucose, Urine (Dipstick) 70 mg/dL (Negative); Ketone, Urine Negative (Negative); Leukocyte 500 Leu/uL (Negative); Nitrite Negative (Negative); Protein, Urine (Dipstick) 20 mg/dL (Neg-Trace); Renal Epithelial 0-3 HPF (None Seen); Urobilinogen Normal mg/dL (Less than 2); WBC/HPF Greater than 50 HPF (0-3); pH, Urine 5.5 (5.0-9.0)
[2023-11-01 18:51] LABS: Urine Culture Reflex Yes Yes
[2023-11-01 19:01] LABS: ALT (SGPT) 19 U/L (8-55); AST (SGOT) 21 U/L (5-34); Albumin 3.7 g/dL (3.4-4.8); Alkaline Phosphatase 62 U/L (40-110); Anion Gap 12 mmol/L (10-20); BUN (Urea Nitrogen) 14 mg/dL (9.8-20.1); Bilirubin, Total 0.7 mg/dL (0.2-1.2); Calc. Creatinine Clearance 0 mL/min (70-130); Calcium 9.2 mg/dL (7.8-10.44); Carbon Dioxide 21 mmol/L (23-31); Chloride 101 mmol/L (98-107); Estimated GFR 76; Glucose 82 mg/dL (80-115); Lipase 30 U/L (8-78); Protein, Total 7.7 g/dL (5.8-8.1); Sodium 130 mmol/L (136-145)
[2023-11-01] MEDS ORDERED: LevoFLOXacin 750 mg/D5W 150 ml Premix Bag ONE (20:12)
[2023-11-01] MEDS ORDERED: Vancomycin 1 GM/200 ML (FROZEN) BAG ONE (22:01)
== END 2023-11-02 00:26 | disposition home or self-care (01) ==
LOC: ERS 17:43
DX: N39.0 Urinary tract infection, site not specified (principal); I10 Essential (primary) hypertension
CPT/HCPCS: 36415; 71045; 74177; 80053; 81001; 83605; 83690; 85025; 87040; 87086; 96365; 96366; 96367; 96375; 96376; J1885; J1956; J2405; J3010; J3370-JW; Q9967

== ENCOUNTER 2024-01-23 08:36 | Outpatient (CLI) | payer BC | END 2024-01-23 08:37 | disposition home or self-care (01) | LOC: BICCT 08:36 | PROVIDERS: ATTEND Surgery | DX: K43.2 Incisional hernia without obstruction or gangrene (principal); Z97.8 Presence of other specified devices; Z98.890 Other specified postprocedural states | CPT/HCPCS: 74176 ==

== ENCOUNTER 2024-02-18 09:44 | Outpatient (CLI) | payer BC | END 2024-02-18 09:45 | disposition home or self-care (01) | LOC: BICCT 09:44 | PROVIDERS: ATTEND Surgery | DX: K43.2 Incisional hernia without obstruction or gangrene (principal) | CPT/HCPCS: 74176 ==

== ENCOUNTER 2024-06-22 16:31 | Emergency (ER) | payer BC ==
[2024-06-22] MEDS ORDERED: Ketorolac Tromethamine 30 MG (1 mL) VIAL ONE (18:41)
[2024-06-22] MEDS ORDERED: Ondansetron PF 4 MG/2 ML Vial ONE (18:49)
[2024-06-22 18:56] LABS: #Basophils 0.07 10x3/uL (0.0-0.2); %Basophils 0.6 % (0.0-1.0); %Eosinophils 1.2 % (0.0-10.0); %Lymphocytes 19.5 % (21.0-51.0); %Monocytes 8.9 % (0.0-10.0); %Neutrophils 69.4 % (42.0-75.0); Hematocrit 43.3 % (36.0-47.0); Hemoglobin 14.7 g/dL (12.0-16.0); Mean Corpuscular HGB CONC 33.9 g/dL (32.0-36.0); Mean Corpuscular Hemoglobin 30.9 pg (27.0-31.0); Platelet Count 356 10x3/uL (130-400); RBC Distribution Width 12.8 % (11.5-14.5); Red Blood Cell (RBC) Count 4.76 mill/uL (4.20-5.40)
[2024-06-22 19:19] LABS: ALT (SGPT) 117 U/L (8-55); AST (SGOT) 70 U/L (5-34); Alkaline Phosphatase 73 U/L (40-110); Anion Gap 16 mmol/L (10-20); BUN (Urea Nitrogen) 18 mg/dL (9.8-20.1); Bilirubin, Total 1.1 mg/dL (0.2-1.2); Calc. Creatinine Clearance 0 mL/min (70-130); Calcium 9.4 mg/dL (7.8-10.44); Carbon Dioxide 22 mmol/L (23-31); Chloride 99 mmol/L (98-107); Estimated GFR 67; Globulin 4.2 g/dL (2.4-3.5); Glucose 84 mg/dL (80-115); Potassium 4.8 mmol/L (3.5-5.1); Protein, Total 8.2 g/dL (5.8-8.1); Sodium 132 mmol/L (136-145)
== END 2024-06-22 21:18 | disposition home or self-care (01) ==
LOC: ERS 16:31
DX: S09.90XA Unspecified injury of head, initial encounter (principal); M25.552 Pain in left hip; M25.562 Pain in left knee; Z55.6 Problems related to health literacy; W01.198A Fall on same level from slipping, tripping and stumbling with subsequent striking against other object, initial encounter
CPT/HCPCS: 70450; 74177; 80053; 85025; 96374; 96375; J1885; J2405; Q9967

== ENCOUNTER 2024-10-05 07:15 | Outpatient (CLI) | payer BC ==
[2024-10-05] MEDS ORDERED: Iopamidol 370 76% 100 ML VIAL ONE (12:02)
== END 2024-10-05 07:16 | disposition home or self-care (01) ==
LOC: CT 07:15
PROVIDERS: ATTEND Surgery
DX: R10.9 Unspecified abdominal pain (principal)
CPT/HCPCS: 74177; 82565; Q9967

== ENCOUNTER 2025-05-08 22:09 | Inpatient (IN) | payer BC ==
[~2025-05-08 22:09] MED LIST changes: +Iopamidol 370 76% 100 ML VIAL ONE; -Iopamidol-370 76% 500 ML MDV (1 ML CHARGE) ONE
[2025-05-08] MEDS ORDERED: Ondansetron PF 4 MG/2 ML Vial ONE (22:41)
[2025-05-08 22:59] LABS: Bacteria/HPF None Seen HPF (None Seen); CAUTI Indications for Culture Alt mental st,lethar; Glucose, Urine (Dipstick) 300 mg/dL (Negative); Leukocyte 500 Leu/uL (Negative); Protein, Urine (Dipstick) 30 mg/dL (Neg-Trace); Specific Gravity, Urine 1.010 (1.002-1.036); WBC/HPF Greater than 50 HPF (0-3)
[2025-05-08 23:15] LABS: #Basophils 0.08 10x3/uL (0.0-0.2); #Eosinophils 0.09 10x3/uL (0.0-0.7); #Monocytes 0.78 10x3/uL (0.11-0.59); #Neutrophils 9.14 10x3/uL (1.40-6.50); %Basophils 0.7 % (0.0-1.0); %Eosinophils 0.7 % (0.0-10.0); %Lymphocytes 17.0 % (21.0-51.0); %Monocytes 6.4 % (0.0-10.0); %Neutrophils 74.7 % (42.0-75.0); Hematocrit 47.0 % (36.0-47.0); Hemoglobin 16.1 g/dL (12.0-16.0); Mean Corpuscular Hemoglobin 30.6 pg (27.0-31.0); Mean Corpuscular Volume 89.4 fL (78.0-98.0); Platelet Count 356 10x3/uL (130-400); Red Blood Cell (RBC) Count 5.26 mill/uL (4.20-5.40); White Blood Cell (WBC) Count 12.23 10x3/uL (4.8-10.8)
[2025-05-08 23:27] LABS: Urine Culture Reflex Yes Yes
[2025-05-08 23:38] LABS: ALT (SGPT) 74 U/L (Less than 34); AST (SGOT) 66 U/L (11-34); Albumin 4.1 g/dL (3.1-4.5); Alkaline Phosphatase 86 U/L (40-110); Anion Gap 22 mmol/L (10-20); BUN (Urea Nitrogen) 19 mg/dL (9.8-20.1); Bilirubin, Total 0.5 mg/dL (0.3-1.2); Calc. Creatinine Clearance 0 mL/min (70-130); Calcium 9.5 mg/dL (7.8-10.44); Carbon Dioxide 14 mmol/L (23-31); Chloride 103 mmol/L (98-107); Globulin 4.0 g/dL (2.4-3.5); Glucose 194 mg/dL (80-115); Lipase 57 U/L (8-78); Potassium 4.0 mmol/L (3.5-5.1); Sodium 135 mmol/L (136-145)
[2025-05-08 23:39] LABS: BHCG - Serum Negative (NEGATIVE); Pregs Control Background? CLEAR/WHITE (CLR/WHITE); Pregs Control Bar Appear? YES (CONTROL BAR)
[2025-05-09] MEDS ORDERED: hydrALAZINE 20 MG/ML VIAL ONE (02:03)
[2025-05-09] MEDS ORDERED: Ciprofloxacin Lactate D5W 400 mg (200 mL) BAG ONE (02:03)
[2025-05-09] MEDS ORDERED: Ondansetron PF 4 MG/2 ML Vial ONE (03:01)
[2025-05-09] MEDS ORDERED: HYDROmorphone 0.5 MG/0.5 ML SYRINGE ONE (03:36)
[2025-05-09] MEDS ORDERED: Calcium Carbonate 500 MG ChewTAB PO PRN (04:25)
[2025-05-09] MEDS ORDERED: Aspirin Chewable 81 MG TAB ONE (04:28)
[2025-05-09] MEDS ORDERED: Enoxaparin 100 MG (1 mL) SYRINGE ONE (04:29)
[2025-05-09 04:48] LABS: INR-International Normal Ratio 1.1; PTT 24.1 sec (22.9-36.1); Prothrombin Time 14.2 sec (12.0-14.7)
[2025-05-09 05:58] VITALS: BMI 32.3
[2025-05-09 08:04] LABS: Cocaine Metabolite Screen Negative (Negative); THC/Cannabinoid Screen Negative (Negative); Tricyclic Screen Negative (Negative)
[2025-05-09 08:54] LABS: Actual Bicarbonate (HCO3v) 21.5 mEq/L (22-28); Base Excess 0.7 mEq/L (-2.0 to +3.0); Calcium, Ionized (venous) 1.03 mmol/L (1.16-1.32); Chloride (VBG) 101 mmol/L (98-106); Hematocrit-VBG 50 % (36.0-47.0); Hemoglobin (Hb) 17.1 g/dL (11.7-16.0); Potassium (VBG) 4.14 mmol/L (3.70-5.30); Sodium 134 mmol/L (133-146)
[2025-05-09] MEDS ORDERED: Iopamidol 370 76% 100 ML VIAL ONE (09:11)
[2025-05-09 09:14] LABS: Magnesium 2.3 mg/dL (1.6-2.6)
[2025-05-09] MEDS: Pantoprazole 40 MG VIAL IVP SCH (09:28)
[2025-05-09] MEDS: Ondansetron PF 4 MG/2 ML Vial IVP PRN (13:13)
[2025-05-09] MEDS: Ciprofloxacin Lactate/D5W 400 MG in Premix 1 BAG IVPB SCH (13:13)
[2025-05-09] MEDS: HYDROmorphone 0.5 MG/0.5 ML SYRINGE SLOW IVP SCH ×2 (13:45→19:59)
[2025-05-09 14:05] LABS: Influenza A by NAA Not Detected (NotDetected); Influenza B by NAA Not Detected (NotDetected); RSV by NAA Not Detected (NotDetected); SARS-CoV-2 NAA Rapid Test Not Detected (NotDetected)
[2025-05-09] MEDS: Enoxaparin 80 MG (0.8 mL) SYRINGE SC SCH (18:07)
[2025-05-09 20:23] LABS: #Basophils 0.03 10x3/uL (0.0-0.2); #Eosinophils Less than 0.03 10x3/uL (0.0-0.7); #Monocytes 1.63 10x3/uL (0.11-0.59); #Neutrophils 12.26 10x3/uL (1.40-6.50); %Basophils 0.2 % (0.0-1.0); %Eosinophils 0.1 % (0.0-10.0); %Lymphocytes 10.2 % (21.0-51.0); %Monocytes 10.3 % (0.0-10.0); %Neutrophils 77.7 % (42.0-75.0); Hematocrit 42.8 % (36.0-47.0); Hemoglobin 13.9 g/dL (12.0-16.0); Mean Corpuscular Hemoglobin 30.8 pg (27.0-31.0); Mean Corpuscular Volume 94.7 fL (78.0-98.0); Platelet Count 306 10x3/uL (130-400); Red Blood Cell (RBC) Count 4.52 mill/uL (4.20-5.40); White Blood Cell (WBC) Count 15.76 10x3/uL (4.8-10.8)
[2025-05-09 20:43] LABS: Anion Gap 20 mmol/L (10-20); BUN (Urea Nitrogen) 27 mg/dL (9.8-20.1); Calc. Creatinine Clearance 47 mL/min (70-130); Calcium 8.4 mg/dL (7.8-10.44); Carbon Dioxide 13 mmol/L (23-31); Chloride 105 mmol/L (98-107); Glucose 340 mg/dL (80-115); Potassium 4.6 mmol/L (3.5-5.1); Sodium 133 mmol/L (136-145)
[2025-05-09] MEDS ORDERED: Carvedilol 25 MG TAB PO SCH (21:00)
[2025-05-09] MEDS ORDERED: Vancomycin 1 GM in Premix 1 BAG IVPB SCH (21:00)
[2025-05-09] MEDS ORDERED: Glucagon 1 MG/ML KIT IM PRN (21:03)
[2025-05-09] MEDS ORDERED: Dextrose 50% Abboject 50 ML SYRINGE SLOW IVP PRN (21:03)
[2025-05-09] MEDS: NOREPINEPHRINE 8 MG/250 ML-D5W 250 ML ONE (21:40)
[2025-05-09] MEDS: NOREPINEPHRINE 8 MG/250 ML-D5W 250 ML IVPB SCH (21:40)
[2025-05-09 21:58] LABS: Base Excess (BEa) -13.4 mEq/L (-2.0 to +3.0); Calcium, Ionized (arterial) 1.03 mmol/L (1.12-1.30); Hematocrit-ABG 29 % (36.0-47.0); Hemoglobin (Hb) 9.8 g/dL (12.0-16.0); O2 Tension (PaO2), arterial 282.2 mmHg (> 80.0); Potassium - ABG Lab 4.12 mmol/L (3.70-5.30); pH, Arterial 7.333 (7.35-7.45)
[2025-05-09] MEDS: Rosuvastatin 20 MG TAB PO SCH (22:00)
[2025-05-09 22:02] LABS: Actual Bicarbonate (HCO3a) 10.7 mEq/L (22-28); CO2 Tension 20.7 mmHg (35.0-45.0); Puncture Site Left Radial artery
[2025-05-09 22:03] LABS: ALV-art Gradient 119.725 mmHg (0-20)
[2025-05-09] MEDS: Vasopressin In 0.9 % NaCl 100 ML IV SCH (22:15)
[2025-05-09] MEDS: Ventilator Sedation Protocol 1 EACH FS ONE (22:20)
[2025-05-09] MEDS ORDERED: DISCONTINUE PREVIOUS NARCOTIC PAIN MEDICATIONS AND BENZODIAZEPINES FS SCH (22:30)
[2025-05-09] MEDS ORDERED: Propofol BOLUS 1,000 MG/100 ML VIAL IV PRN (22:30)
[2025-05-09] MEDS ORDERED: Fentanyl BOLUS 100 ML IVPB PRN (22:30)
[2025-05-09 22:32] LABS: #Basophils Less than 0.03 10x3/uL (0.0-0.2); #Eosinophils Less than 0.03 10x3/uL (0.0-0.7); #Monocytes 0.89 10x3/uL (0.11-0.59); #Neutrophils 8.72 10x3/uL (1.40-6.50); %Basophils 0.2 % (0.0-1.0); %Eosinophils 0.2 % (0.0-10.0); %Lymphocytes 12.6 % (21.0-51.0); %Monocytes 7.7 % (0.0-10.0); %Neutrophils 74.9 % (42.0-75.0); Hematocrit 27.6 % (36.0-47.0); Hemoglobin 8.7 g/dL (12.0-16.0); Mean Corpuscular Hemoglobin 31.3 pg (27.0-31.0); Mean Corpuscular Volume 99.3 fL (78.0-98.0); Platelet Count 213 10x3/uL (130-400); Red Blood Cell (RBC) Count 2.78 mill/uL (4.20-5.40); White Blood Cell (WBC) Count 11.62 10x3/uL (4.8-10.8)
[2025-05-09 22:40] LABS: INR-International Normal Ratio 1.8; PTT 35.0 sec (22.9-36.1); Prothrombin Time 21.1 sec (12.0-14.7)
[2025-05-09] MEDS: Sodium Bicarb 50 MEQ/50 ML Abboject 8.4% SYRINGE IVP SCH (22:45)
[2025-05-09] MEDS: Phenylephrine 40 MG/NS 250 ML 40 MG in Premix 1 BAG IVPB SCH (23:13)
[2025-05-09 23:15] LABS: ALT (SGPT) 50 U/L (Less than 34); AST (SGOT) 60 U/L (11-34); Albumin 1.7 g/dL (3.1-4.5); Alkaline Phosphatase 39 U/L (40-110); Anion Gap 18 mmol/L (10-20); BUN (Urea Nitrogen) 27 mg/dL (9.8-20.1); Bilirubin, Direct 0.3 mg/dL (0.1-0.3); Bilirubin, Total 0.6 mg/dL (0.3-1.2); Calc. Creatinine Clearance 47 mL/min (70-130); Calcium 5.6 mg/dL (7.8-10.44); Carbon Dioxide 8 mmol/L (23-31); Chloride 117 mmol/L (98-107); Globulin 1.7 g/dL (2.4-3.5); Glucose 324 mg/dL (80-115); Potassium 3.7 mmol/L (3.5-5.1); Sodium 139 mmol/L (136-145)
[2025-05-09] MEDS ORDERED: PHENYLEPHRINE IVPB SCH (23:15)
[2025-05-09] MEDS ORDERED: [UNRECOGNIZED DRUG - OTHER] IVPB SCH (23:15)
[2025-05-09] MEDS: Phenylephrine 40 MG/NS 250 ML 250 ML ONE (23:15)
[2025-05-10 00:26] LABS: Hematocrit 24.0 % (36.0-47.0); Hemoglobin 8.0 g/dL (12.0-16.0)
[2025-05-10] MEDS: Albumin 5% 12.5 GM (250 mL) BOT IVPB SCH (00:42)
[2025-05-10] MEDS: Vancomycin 1.5 GM / NS 500ML VIAL-2-BAG IVPB SCH ×2 (00:49→00:50)
[2025-05-10] MEDS: CALCIUM GLUC IVPB SCH ×3 (02:52→06:33)
[2025-05-10] MEDS: NS 2 GM IVPB SCH ×3 (02:52→06:33)
[2025-05-10 05:41] LABS: Actual Bicarbonate (HCO3a) 23.0 mEq/L (22-28); Base Excess (BEa) 1.3 mEq/L (-2.0 to +3.0); CO2 Tension 25.6 mmHg (35.0-45.0); Calcium, Ionized (arterial) 0.96 mmol/L (1.12-1.30); Hematocrit-ABG 24 % (36.0-47.0); Hemoglobin (Hb) 8.2 g/dL (12.0-16.0); O2 Tension (PaO2), arterial 124.6 mmHg (> 80.0); Potassium - ABG Lab 2.84 mmol/L (3.70-5.30); pH, Arterial 7.571 (7.35-7.45)
[2025-05-10 05:44] LABS: ALV-art Gradient 128.600 mmHg (0-20); Puncture Site Arterial Line
[2025-05-10 05:45] LABS: #Basophils Less than 0.03 10x3/uL (0.0-0.2); #Eosinophils Less than 0.03 10x3/uL (0.0-0.7); #Monocytes 1.16 10x3/uL (0.11-0.59); #Neutrophils 10.00 10x3/uL (1.40-6.50); %Basophils 0.1 % (0.0-1.0); %Eosinophils 0.0 % (0.0-10.0); %Lymphocytes 16.9 % (21.0-51.0); %Monocytes 8.5 % (0.0-10.0); %Neutrophils 73.1 % (42.0-75.0); Hematocrit 22.5 % (36.0-47.0); Hemoglobin 7.6 g/dL (12.0-16.0); Mean Corpuscular Hemoglobin 29.9 pg (27.0-31.0); Mean Corpuscular Volume 88.6 fL (78.0-98.0); Platelet Count 166 10x3/uL (130-400); Red Blood Cell (RBC) Count 2.54 mill/uL (4.20-5.40); White Blood Cell (WBC) Count 13.68 10x3/uL (4.8-10.8)
[2025-05-10 06:28] LABS: Vancomycin, Random 27.7 ug/mL (See Comment)
[2025-05-10] MEDS: Potassium Chloride 20 MEQ in Premix 1 BAG IVPB SCH ×2 (06:28→09:21)
[2025-05-10 06:29] LABS: ALT (SGPT) 58 U/L (Less than 34); AST (SGOT) 65 U/L (11-34); Albumin 3.0 g/dL (3.1-4.5); Alkaline Phosphatase 46 U/L (40-110); Anion Gap 18 mmol/L (10-20); BUN (Urea Nitrogen) 30 mg/dL (9.8-20.1); Bilirubin, Total 2.1 mg/dL (0.3-1.2); Calc. Creatinine Clearance 48 mL/min (70-130); Calcium 7.3 mg/dL (7.8-10.44); Carbon Dioxide 22 mmol/L (23-31); Chloride 105 mmol/L (98-107); Globulin 1.9 g/dL (2.4-3.5); Glucose 196 mg/dL (80-115); Magnesium 2.5 mg/dL (1.6-2.6); Potassium 2.9 mmol/L (3.5-5.1); Sodium 142 mmol/L (136-145)
[2025-05-10] MEDS: Vasopressin In 0.9 % NaCl 100 ML ONE (07:48)
[2025-05-10] MEDS: Vancomycin 1 GM Premix Bag IVPB SCH ×2 (07:50→20:54)
[2025-05-10] MEDS: Aspirin Chewable 81 MG TAB PER TUBE SCH (09:22)
[2025-05-10] MEDS: Aspirin 81 mg Enteric Coated Tablet PO SCH (09:27)
[2025-05-10] MEDS ORDERED: Iopamidol-370 76% 500 ML MDV (1 ML CHARGE) ONE (11:33)
[2025-05-10 12:28] LABS: #Basophils 0.05 10x3/uL (0.0-0.2); #Eosinophils Less than 0.03 10x3/uL (0.0-0.7); #Monocytes 1.18 10x3/uL (0.11-0.59); #Neutrophils 8.79 10x3/uL (1.40-6.50); %Basophils 0.4 % (0.0-1.0); %Eosinophils 0.1 % (0.0-10.0); %Lymphocytes 17.2 % (21.0-51.0); %Monocytes 9.6 % (0.0-10.0); %Neutrophils 71.9 % (42.0-75.0); Hematocrit 23.9 % (36.0-47.0); Hemoglobin 8.2 g/dL (12.0-16.0); Mean Corpuscular Hemoglobin 30.4 pg (27.0-31.0); Mean Corpuscular Volume 88.5 fL (78.0-98.0); Platelet Count 155 10x3/uL (130-400); Red Blood Cell (RBC) Count 2.70 mill/uL (4.20-5.40); White Blood Cell (WBC) Count 12.23 10x3/uL (4.8-10.8)
[2025-05-10 12:29] LABS: Platelet Count 150 10x3/uL (130-400)
[2025-05-10 12:49] LABS: Anion Gap 13 mmol/L (10-20); BUN (Urea Nitrogen) 22 mg/dL (9.8-20.1); Calc. Creatinine Clearance 69 mL/min (70-130); Calcium 7.6 mg/dL (7.8-10.44); Carbon Dioxide 24 mmol/L (23-31); Chloride 105 mmol/L (98-107); Glucose 119 mg/dL (80-115); Potassium 3.6 mmol/L (3.5-5.1); Sodium 138 mmol/L (136-145)
[2025-05-10 13:03] LABS: Actual Bicarbonate (HCO3a) 24.9 mEq/L (22-28); Base Excess (BEa) 3.3 mEq/L (-2.0 to +3.0); CO2 Tension 27.0 mmHg (35.0-45.0); Calcium, Ionized (arterial) 1.03 mmol/L (1.12-1.30); Hematocrit-ABG 25 % (36.0-47.0); Hemoglobin (Hb) 8.6 g/dL (12.0-16.0); O2 Tension (PaO2), arterial 99.6 mmHg (> 80.0); Potassium - ABG Lab 3.64 mmol/L (3.70-5.30); pH, Arterial 7.582 (7.35-7.45)
[2025-05-10 13:04] LABS: ALV-art Gradient 116.200 mmHg (0-20); Puncture Site Arterial Line
[2025-05-10 13:13] LABS: Fibrinogen 334 mg/dL (253-463)
[2025-05-10 13:14] LABS: INR-International Normal Ratio 1.4; PTT 35.0 sec (22.9-36.1); Prothrombin Time 17.2 sec (12.0-14.7)
[2025-05-10 13:15] LABS: D-Dimer Test 1.29 mcg/mL (0.27-0.43)
[2025-05-10] MEDS ORDERED: NOREPINEPHRINE 8 MG/250 ML-D5W 250 ML ONE (17:01)
[2025-05-10] MEDS ORDERED: PROPOFOL 200 MG/20 ML VIAL ONE (17:20)
[2025-05-10] MEDS ORDERED: Calcium Chloride 1 GM/10 ML Abboject SYRINGE ONE (18:34)
[2025-05-10] MEDS ORDERED: Rocuronium Bromide 10 MG/ML (10ML VIAL) ONE (18:51)
[2025-05-10 19:45] LABS: Actual Bicarbonate (HCO3a) 18.9 mEq/L (22-28); Base Excess (BEa) -4.1 mEq/L (-2.0 to +3.0); CO2 Tension 27.3 mmHg (35.0-45.0); Calcium, Ionized (arterial) 1.12 mmol/L (1.12-1.30); Hematocrit-ABG 28 % (36.0-47.0); Hemoglobin (Hb) 9.4 g/dL (12.0-16.0); O2 Tension (PaO2), arterial 141.6 mmHg (> 80.0); Potassium - ABG Lab 3.65 mmol/L (3.70-5.30); pH, Arterial 7.458 (7.35-7.45)
[2025-05-10 19:47] LABS: ALV-art Gradient 73.825 mmHg (0-20); Puncture Site LINE
[2025-05-10 21:44] LABS: Hematocrit 27.1 % (36.0-47.0); Hemoglobin 8.9 g/dL (12.0-16.0); Platelet Count 95 10x3/uL (130-400)
[2025-05-10 22:01] LABS: Anion Gap 13 mmol/L (10-20); BUN (Urea Nitrogen) 21 mg/dL (9.8-20.1); Calc. Creatinine Clearance 57 mL/min (70-130); Calcium 7.9 mg/dL (7.8-10.44); Carbon Dioxide 21 mmol/L (23-31); Chloride 107 mmol/L (98-107); Glucose 231 mg/dL (80-115); Potassium 4.0 mmol/L (3.5-5.1); Sodium 137 mmol/L (136-145)
[2025-05-11 04:07] LABS: INR-International Normal Ratio 1.2; PTT 26.3 sec (22.9-36.1); Prothrombin Time 15.7 sec (12.0-14.7)
[2025-05-11 04:08] LABS: #Basophils 0.04 10x3/uL (0.0-0.2); #Eosinophils Less than 0.03 10x3/uL (0.0-0.7); #Monocytes 1.47 10x3/uL (0.11-0.59); #Neutrophils 13.77 10x3/uL (1.40-6.50); %Basophils 0.2 % (0.0-1.0); %Eosinophils 0.1 % (0.0-10.0); %Lymphocytes 10.4 % (21.0-51.0); %Monocytes 8.5 % (0.0-10.0); %Neutrophils 79.6 % (42.0-75.0); Hematocrit 25.0 % (36.0-47.0); Hemoglobin 8.4 g/dL (12.0-16.0); Mean Corpuscular Hemoglobin 29.7 pg (27.0-31.0); Mean Corpuscular Volume 88.3 fL (78.0-98.0); Platelet Count 106 10x3/uL (130-400); Red Blood Cell (RBC) Count 2.83 mill/uL (4.20-5.40); White Blood Cell (WBC) Count 17.28 10x3/uL (4.8-10.8)
[2025-05-11 04:15] LABS: Vancomycin, Random 28.5 ug/mL (See Comment)
[2025-05-11 04:17] LABS: ALT (SGPT) 48 U/L (Less than 34); AST (SGOT) 39 U/L (11-34); Albumin 2.5 g/dL (3.1-4.5); Alkaline Phosphatase 48 U/L (40-110); Anion Gap 13 mmol/L (10-20); BUN (Urea Nitrogen) 26 mg/dL (9.8-20.1); Bilirubin, Total 1.1 mg/dL (0.3-1.2); Calc. Creatinine Clearance 39 mL/min (70-130); Calcium 7.6 mg/dL (7.8-10.44); Carbon Dioxide 22 mmol/L (23-31); Chloride 107 mmol/L (98-107); Globulin 2.2 g/dL (2.4-3.5); Glucose 165 mg/dL (80-115); Magnesium 2.2 mg/dL (1.6-2.6); Potassium 4.4 mmol/L (3.5-5.1); Sodium 138 mmol/L (136-145)
[2025-05-11] MEDS ORDERED: Aspirin Chewable 81 MG TAB PER TUBE SCH (09:00)
[2025-05-11 09:55] LABS: Actual Bicarbonate (HCO3a) 20.2 mEq/L (22-28); Base Excess (BEa) -2.6 mEq/L (-2.0 to +3.0); CO2 Tension 27.5 mmHg (35.0-45.0); Calcium, Ionized (arterial) 1.01 mmol/L (1.12-1.30); Hematocrit-ABG 25 % (36.0-47.0); Hemoglobin (Hb) 8.5 g/dL (12.0-16.0); O2 Tension (PaO2), arterial 112.2 mmHg (> 80.0); Potassium - ABG Lab 4.14 mmol/L (3.70-5.30); pH, Arterial 7.484 (7.35-7.45)
[2025-05-11 16:07] LABS: Hematocrit 19.6 % (36.0-47.0); Hemoglobin 6.7 g/dL (12.0-16.0); Platelet Count 112 10x3/uL (130-400)
[2025-05-11 16:25] LABS: Anion Gap 13 mmol/L (10-20); BUN (Urea Nitrogen) 27 mg/dL (9.8-20.1); Calc. Creatinine Clearance 50 mL/min (70-130); Calcium 6.8 mg/dL (7.8-10.44); Carbon Dioxide 19 mmol/L (23-31); Chloride 108 mmol/L (98-107); Glucose 179 mg/dL (80-115); Potassium 4.2 mmol/L (3.5-5.1); Sodium 136 mmol/L (136-145)
[2025-05-11] MEDS ORDERED: CALCIUM GLUC 1 GM/NS 50 ML 1 GM in Premix 1 BAG IVPB SCH (16:45)
[2025-05-11] MEDS: Vancomycin HCl 750 MG in Sodium Chloride 0.9% 250 ML 250 ML IVPB SCH (20:03)
[2025-05-12] MEDS: Albumin 25% 25 GM (100 mL) BOT IVPB SCH (00:53)
[2025-05-12 03:01] LABS: #Basophils Less than 0.03 10x3/uL (0.0-0.2); #Eosinophils Less than 0.03 10x3/uL (0.0-0.7); #Monocytes 1.39 10x3/uL (0.11-0.59); #Neutrophils 11.66 10x3/uL (1.40-6.50); %Basophils 0.1 % (0.0-1.0); %Eosinophils 0.1 % (0.0-10.0); %Lymphocytes 9.2 % (21.0-51.0); %Monocytes 9.6 % (0.0-10.0); %Neutrophils 80.1 % (42.0-75.0); Hematocrit 19.4 % (36.0-47.0); Hemoglobin 6.5 g/dL (12.0-16.0); Mean Corpuscular Hemoglobin 29.8 pg (27.0-31.0); Mean Corpuscular Volume 89.0 fL (78.0-98.0); Platelet Count 98 10x3/uL (130-400); Red Blood Cell (RBC) Count 2.18 mill/uL (4.20-5.40); White Blood Cell (WBC) Count 14.54 10x3/uL (4.8-10.8)
[2025-05-12 03:14] LABS: Vancomycin, Random 20.2 ug/mL (See Comment)
[2025-05-12 03:17] LABS: ALT (SGPT) 46 U/L (Less than 34); AST (SGOT) 34 U/L (11-34); Albumin 2.4 g/dL (3.1-4.5); Alkaline Phosphatase 40 U/L (40-110); Anion Gap 12 mmol/L (10-20); BUN (Urea Nitrogen) 24 mg/dL (9.8-20.1); Bilirubin, Total 1.0 mg/dL (0.3-1.2); Calc. Creatinine Clearance 68 mL/min (70-130); Calcium 7.6 mg/dL (7.8-10.44); Carbon Dioxide 20 mmol/L (23-31); Chloride 109 mmol/L (98-107); Globulin 2.0 g/dL (2.4-3.5); Glucose 169 mg/dL (80-115); Magnesium 2.0 mg/dL (1.6-2.6); Potassium 4.0 mmol/L (3.5-5.1); Sodium 137 mmol/L (136-145)
[2025-05-12 10:15] LABS: Glucose 144 mg/dL (80-115)
[2025-05-12] MEDS: Magnesium 2 GM/50 ML(in water) 2 GM in Premix 1 BAG IVPB SCH (10:32)
[2025-05-12] MEDS ORDERED: fentaNYL PF 100 MCG/2 ML SYRINGE ONE ×2 (13:47→14:29)
[2025-05-12 13:54] LABS: Hematocrit 22.5 % (36.0-47.0); Hemoglobin 7.6 g/dL (12.0-16.0); Platelet Count 91 10x3/uL (130-400)
[2025-05-12 14:00] LABS: Glucose 130 mg/dL (80-115)
[2025-05-12] MEDS ORDERED: PHENYLEPHRINE-NS 100 MCG/ML 10 ML SYRINGE ONE (14:00)
[2025-05-12] MEDS ORDERED: Rocuronium Bromide 10 MG/ML (10ML VIAL) ONE (14:00)
[2025-05-12] MEDS ORDERED: Calcium Chloride 1 GM/10 ML Abboject SYRINGE ONE (14:24)
[2025-05-12 18:30] LABS: Glucose 131 mg/dL (80-115)
[2025-05-12] MEDS: Vancomycin 1 GM Premix Bag IVPB SCH (20:31)
[2025-05-13 00:22] LABS: Glucose 136 mg/dL (80-115)
[2025-05-13 04:39] LABS: Hematocrit 23.6 % (36.0-47.0); Hemoglobin 7.8 g/dL (12.0-16.0); Mean Corpuscular Hemoglobin 29.7 pg (27.0-31.0); Mean Corpuscular Volume 89.7 fL (78.0-98.0); Platelet Count 121 10x3/uL (130-400); Red Blood Cell (RBC) Count 2.63 mill/uL (4.20-5.40); White Blood Cell (WBC) Count 10.95 10x3/uL (4.8-10.8)
[2025-05-13 04:42] LABS: Anion Gap 9 mmol/L (10-20); BUN (Urea Nitrogen) 16 mg/dL (9.8-20.1); Calc. Creatinine Clearance 111 mL/min (70-130); Carbon Dioxide 21 mmol/L (23-31); Chloride 110 mmol/L (98-107); Potassium 4.3 mmol/L (3.5-5.1); Sodium 136 mmol/L (136-145)
[2025-05-13 04:43] LABS: ALT (SGPT) 70 U/L (Less than 34); AST (SGOT) 89 U/L (11-34); Albumin 1.8 g/dL (3.1-4.5); Alkaline Phosphatase 46 U/L (40-110); Bilirubin, Total 1.0 mg/dL (0.3-1.2); Calcium 7.7 mg/dL (7.8-10.44); Globulin 2.5 g/dL (2.4-3.5); Glucose 128 mg/dL (80-115); Magnesium 2.2 mg/dL (1.6-2.6)
[2025-05-13 05:19] LABS: Burr Cells SLIGHT = 2-5 cells HPF (0-1); Nucleated RBC (Manual Ct) 11 % (0); Platelet Adequacy Comment Significant Decrease; Polychromasia SLIGHT = 2-3 cells HPF (0-2); Smudge Cells 5.0 %
[2025-05-13] MEDS: VANCOMYCIN 1.75 GM/350 ML BAG 1.75 GM in Premix 1 BAG IVPB SCH (20:37)
[2025-05-14 04:12] LABS: Hematocrit 22.0 % (36.0-47.0); Hemoglobin 7.2 g/dL (12.0-16.0); Mean Corpuscular Hemoglobin 30.3 pg (27.0-31.0); Mean Corpuscular Volume 92.4 fL (78.0-98.0); Platelet Count 130 10x3/uL (130-400); Red Blood Cell (RBC) Count 2.38 mill/uL (4.20-5.40); White Blood Cell (WBC) Count 12.99 10x3/uL (4.8-10.8)
[2025-05-14 04:31] LABS: Nucleated RBC (Manual Ct) 19 % (0); Platelet Adequacy Comment Platelets Normal; Polychromasia SLIGHT = 2-3 cells HPF (0-2)
[2025-05-14 04:57] LABS: ALT (SGPT) 78 U/L (Less than 34); AST (SGOT) 92 U/L (11-34); Albumin 1.6 g/dL (3.1-4.5); Alkaline Phosphatase 52 U/L (40-110); Anion Gap 10 mmol/L (10-20); BUN (Urea Nitrogen) 16 mg/dL (9.8-20.1); Bilirubin, Total 0.9 mg/dL (0.3-1.2); Calc. Creatinine Clearance 142 mL/min (70-130); Calcium 7.4 mg/dL (7.8-10.44); Carbon Dioxide 21 mmol/L (23-31); Chloride 109 mmol/L (98-107); Globulin 2.8 g/dL (2.4-3.5); Glucose 114 mg/dL (80-115); Potassium 4.0 mmol/L (3.5-5.1); Sodium 136 mmol/L (136-145)
[2025-05-14 05:00] LABS: Vancomycin, Random 26.0 ug/mL (See Comment)
[2025-05-14] MEDS: Furosemide 40 MG (4 mL) VIAL SLOW IVP SCH (08:52)
[2025-05-14] MEDS: Vancomycin 1 GM in Premix 1 BAG IVPB SCH (10:59)
[2025-05-14] MEDS: D5W-AA 4.25% with LYTES 1,000 ML IV SCH (14:08)
[2025-05-14 15:04] LABS: Hematocrit 22.5 % (36.0-47.0); Hemoglobin 7.3 g/dL (12.0-16.0); Platelet Count 152 10x3/uL (130-400)
[2025-05-14] MEDS: Albumin 5% 12.5 GM (250 mL) BOT IVPB SCH (20:20)
[2025-05-14] MEDS: NOREPINEPHRINE 8 MG/250 ML-D5W 250 ML IVPB SCH (21:13)
[2025-05-14] MEDS: NOREPINEPHRINE 8 MG/250 ML-D5W 250 ML ONE (21:14)
[2025-05-15 04:39] LABS: Hematocrit 22.2 % (36.0-47.0); Hemoglobin 7.4 g/dL (12.0-16.0); Mean Corpuscular Hemoglobin 30.1 pg (27.0-31.0); Mean Corpuscular Volume 90.2 fL (78.0-98.0); Platelet Count 157 10x3/uL (130-400); Red Blood Cell (RBC) Count 2.46 mill/uL (4.20-5.40); White Blood Cell (WBC) Count 12.95 10x3/uL (4.8-10.8)
[2025-05-15 04:44] LABS: Vancomycin, Random 27.0 ug/mL (See Comment)
[2025-05-15 04:48] LABS: ALT (SGPT) 70 U/L (Less than 34); AST (SGOT) 77 U/L (11-34); Albumin 1.8 g/dL (3.1-4.5); Alkaline Phosphatase 49 U/L (40-110); Anion Gap 12 mmol/L (10-20); BUN (Urea Nitrogen) 20 mg/dL (9.8-20.1); Bilirubin, Total 0.9 mg/dL (0.3-1.2); Calc. Creatinine Clearance 145 mL/min (70-130); Calcium 7.8 mg/dL (7.8-10.44); Carbon Dioxide 21 mmol/L (23-31); Chloride 106 mmol/L (98-107); Globulin 2.9 g/dL (2.4-3.5); Glucose 159 mg/dL (80-115); Potassium 4.0 mmol/L (3.5-5.1); Sodium 135 mmol/L (136-145)
[2025-05-15 05:11] LABS: Nucleated RBC (Manual Ct) 16 % (0); Platelet Adequacy Comment Platelets Normal; Polychromasia SLIGHT = 2-3 cells HPF (0-2); Smudge Cells 2.0 %
[2025-05-16 04:08] LABS: Hematocrit 21.6 % (36.0-47.0); Hemoglobin 7.1 g/dL (12.0-16.0); Mean Corpuscular Hemoglobin 30.0 pg (27.0-31.0); Mean Corpuscular Volume 91.1 fL (78.0-98.0); Platelet Count 232 10x3/uL (130-400); Red Blood Cell (RBC) Count 2.37 mill/uL (4.20-5.40); White Blood Cell (WBC) Count 11.73 10x3/uL (4.8-10.8)
[2025-05-16 04:15] LABS: ALT (SGPT) 148 U/L (Less than 34); AST (SGOT) 243 U/L (11-34); Albumin 1.7 g/dL (3.1-4.5); Alkaline Phosphatase 64 U/L (40-110); Anion Gap 8 mmol/L (10-20); BUN (Urea Nitrogen) 19 mg/dL (9.8-20.1); Bilirubin, Direct 0.5 mg/dL (0.1-0.3); Bilirubin, Total 1.2 mg/dL (0.3-1.2); Calc. Creatinine Clearance 151 mL/min (70-130); Calcium 7.6 mg/dL (7.8-10.44); Carbon Dioxide 23 mmol/L (23-31); Chloride 104 mmol/L (98-107); Glucose 150 mg/dL (80-115); Magnesium 1.9 mg/dL (1.6-2.6); Potassium 3.6 mmol/L (3.5-5.1); Sodium 131 mmol/L (136-145)
[2025-05-16 04:37] LABS: Anisocytosis SLIGHT = 6-15 cells HPF (0-5); Nucleated RBC (Manual Ct) 16 % (0); Platelet Adequacy Comment Platelets Normal; Polychromasia SLIGHT = 2-3 cells HPF (0-2)
[2025-05-16] MEDS: Magnesium 2 GM/50 ML(in water) 2 GM in Premix 1 BAG IVPB SCH (07:47)
[2025-05-16] MEDS ORDERED: Furosemide 20 MG (2 mL) VIAL SLOW IVP SCH (08:15)
[2025-05-16] MEDS: Furosemide 40 MG (4 mL) VIAL SLOW IVP SCH (08:25)
[2025-05-16] MEDS: Acetaminophen 325 MG TAB PO PRN (08:28)
[2025-05-16] MEDS ORDERED: Transdermal Patch Removal TOP SCH (21:00)
[2025-05-17 05:09] LABS: Hematocrit 22.8 % (36.0-47.0); Hemoglobin 7.3 g/dL (12.0-16.0); Mean Corpuscular Hemoglobin 29.8 pg (27.0-31.0); Mean Corpuscular Volume 93.1 fL (78.0-98.0); Platelet Count 317 10x3/uL (130-400); Red Blood Cell (RBC) Count 2.45 mill/uL (4.20-5.40); White Blood Cell (WBC) Count 11.24 10x3/uL (4.8-10.8)
[2025-05-17 05:24] LABS: Anion Gap 10 mmol/L (10-20); BUN (Urea Nitrogen) 20 mg/dL (9.8-20.1); Calc. Creatinine Clearance 153 mL/min (70-130); Calcium 7.5 mg/dL (7.8-10.44); Carbon Dioxide 23 mmol/L (23-31); Chloride 104 mmol/L (98-107); Glucose 154 mg/dL (80-115); Magnesium 2.2 mg/dL (1.6-2.6); Potassium 4.0 mmol/L (3.5-5.1); Sodium 133 mmol/L (136-145)
[2025-05-17 05:31] LABS: ALT (SGPT) 111 U/L (Less than 34); AST (SGOT) 119 U/L (11-34); Albumin 1.9 g/dL (3.1-4.5); Alkaline Phosphatase 62 U/L (40-110); Bilirubin, Direct 0.5 mg/dL (0.1-0.3); Bilirubin, Total 1.1 mg/dL (0.3-1.2)
[2025-05-17 05:49] LABS: Nucleated RBC (Manual Ct) 7 % (0); Platelet Adequacy Comment Platelets Normal; RBC Morphology Within Normal Limits; Smudge Cells 8.0 %
[2025-05-17] MEDS: Aspirin 81 mg Enteric Coated Tablet PO SCH (10:36)
[2025-05-17] MEDS: Multivitamin W/ Minerals 1 TAB PO SCH ×2 (21:09→21:10)
[2025-05-17] MEDS: Heparin 5,000 UNITS/ML VIAL SC SCH (21:10)
[2025-05-17] MEDS: HYDROcodone/Acetaminophen 5/325 mg Tablet PO PRN (21:51)
[2025-05-17] MEDS: ALPRAZolam 0.25 MG TAB PO PRN (23:06)
[2025-05-18] MEDS: Aspirin 81 mg Enteric Coated Tablet PO SCH (08:43)
[2025-05-18] MEDS: Multivitamin W/ Minerals 1 TAB PO SCH (08:44)
[2025-05-18] MEDS: Mupirocin 1 GM TUBE TP SCH (08:45)
[2025-05-18] MEDS: Pantoprazole 40 MG DR.TAB PO SCH (09:33)
[2025-05-18 12:51] LABS: Anion Gap 14 mmol/L (10-20); BUN (Urea Nitrogen) 19 mg/dL (9.8-20.1); Calc. Creatinine Clearance 134 mL/min (70-130); Calcium 8.2 mg/dL (7.8-10.44); Carbon Dioxide 19 mmol/L (23-31); Chloride 105 mmol/L (98-107); Glucose 170 mg/dL (80-115); Magnesium 2.2 mg/dL (1.6-2.6); Potassium 4.4 mmol/L (3.5-5.1); Sodium 134 mmol/L (136-145)
[2025-05-18 12:52] LABS: ALT (SGPT) 106 U/L (Less than 34); AST (SGOT) 97 U/L (11-34); Albumin 2.5 g/dL (3.1-4.5); Alkaline Phosphatase 86 U/L (40-110); Bilirubin, Direct 0.7 mg/dL (0.1-0.3); Bilirubin, Total 1.5 mg/dL (0.3-1.2)
[2025-05-18] MEDS: Carvedilol 25 MG TAB PO SCH (16:43)
[2025-05-18] MEDS: Acetaminophen 325 MG TAB PO SCH (16:43)
[2025-05-19 10:24] LABS: #Basophils 0.03 10x3/uL (0.0-0.2); #Eosinophils 0.48 10x3/uL (0.0-0.7); #Monocytes 0.82 10x3/uL (0.11-0.59); #Neutrophils 10.95 10x3/uL (1.40-6.50); %Basophils 0.2 % (0.0-1.0); %Eosinophils 3.6 % (0.0-10.0); %Lymphocytes 7.1 % (21.0-51.0); %Monocytes 6.1 % (0.0-10.0); %Neutrophils 81.4 % (42.0-75.0); Hematocrit 31.1 % (36.0-47.0); Hemoglobin 10.0 g/dL (12.0-16.0); Mean Corpuscular Hemoglobin 30.2 pg (27.0-31.0); Mean Corpuscular Volume 94.0 fL (78.0-98.0); Platelet Count 529 10x3/uL (130-400); Red Blood Cell (RBC) Count 3.31 mill/uL (4.20-5.40); White Blood Cell (WBC) Count 13.44 10x3/uL (4.8-10.8)
[2025-05-19 10:50] LABS: Magnesium 2.2 mg/dL (1.6-2.6)
[2025-05-19 15:40] VITALS: BMI 36.6
[2025-05-20] MEDS: Pantoprazole 40 MG VIAL IVP SCH (15:23)
[2025-05-20] MEDS: Mag-Al 1200 mg/1200 mg/30 ML UDCUP PO SCH (17:55)
[2025-05-20] MEDS: Senokot 8.6 MG TAB PO SCH (21:46)
[2025-05-22] MEDS: Transdermal Patch Removal LIDOCAINE TOP SCH (08:39)
[2025-05-22 22:25] LABS: Platelet Count 702 10x3/uL (130-400)
[2025-05-23 05:37] LABS: #Basophils 0.08 10x3/uL (0.0-0.2); #Eosinophils 0.37 10x3/uL (0.0-0.7); #Monocytes 0.85 10x3/uL (0.11-0.59); #Neutrophils 5.55 10x3/uL (1.40-6.50); %Basophils 1.0 % (0.0-1.0); %Eosinophils 4.7 % (0.0-10.0); %Lymphocytes 13.0 % (21.0-51.0); %Monocytes 10.7 % (0.0-10.0); %Neutrophils 69.7 % (42.0-75.0); Hematocrit 29.9 % (36.0-47.0); Hemoglobin 9.4 g/dL (12.0-16.0); Mean Corpuscular Hemoglobin 30.2 pg (27.0-31.0); Mean Corpuscular Volume 96.1 fL (78.0-98.0); Platelet Count 757 10x3/uL (130-400); Red Blood Cell (RBC) Count 3.11 mill/uL (4.20-5.40); White Blood Cell (WBC) Count 7.95 10x3/uL (4.8-10.8)
[2025-05-23] MEDS: Ondansetron PF 4 MG/2 ML Vial IVP SCH (17:45)
[2025-05-23] MEDS ORDERED: Ondansetron PF 4 MG/2 ML Vial IVP PRN (18:10)
[2025-05-24 06:18] LABS: Hematocrit 29.8 % (36.0-47.0); Hemoglobin 9.4 g/dL (12.0-16.0); Mean Corpuscular Hemoglobin 29.9 pg (27.0-31.0); Mean Corpuscular Volume 94.9 fL (78.0-98.0); Platelet Count 725 10x3/uL (130-400); Red Blood Cell (RBC) Count 3.14 mill/uL (4.20-5.40); White Blood Cell (WBC) Count 6.95 10x3/uL (4.8-10.8)
[2025-05-24 06:45] LABS: Anion Gap 9 mmol/L (10-20); BUN (Urea Nitrogen) 11 mg/dL (9.8-20.1); Calc. Creatinine Clearance 125 mL/min (70-130); Calcium 8.4 mg/dL (7.8-10.44); Carbon Dioxide 24 mmol/L (23-31); Chloride 107 mmol/L (98-107); Glucose 108 mg/dL (80-115); Potassium 4.3 mmol/L (3.5-5.1); Sodium 136 mmol/L (136-145)
[2025-05-24 15:32] VITALS: BP 131/81; TEMP 98.4
== END 2025-05-24 19:00 | disposition home health service (06) | DRG 853 ==
LOC: ERS 22:09 → 2NO 05-09 04:31 → CCU 05-09 21:26 → 2NO 05-17 13:58 → SURG A 05-22 21:51
PROVIDERS: ADMIT Student in an Organized Health Care Education/Training Program; ATTEND Internal Medicine
PROC: 0BH17EZ Insertion of Endotracheal Airway into Trachea, Via Natural or Artificial Opening (ICD-10-PCS; principal; 2025-05-09)
PROC: 3E033XZ Introduction of Vasopressor into Peripheral Vein, Percutaneous Approach (ICD-10-PCS; 2025-05-09)
PROC: 04HK33Z Insertion of Infusion Device into Right Femoral Artery, Percutaneous Approach (ICD-10-PCS; 2025-05-09)
PROC: 4A03XR1 Measurement of Arterial Saturation, Peripheral, External Approach (ICD-10-PCS; 2025-05-09)
PROC: 5A1955Z Respiratory Ventilation, Greater than 96 Consecutive Hours (ICD-10-PCS; 2025-05-09)
PROC: 3E03329 Introduction of Other Anti-infective into Peripheral Vein, Percutaneous Approach (ICD-10-PCS; 2025-05-09)
PROC: 30233L1 Transfusion of Nonautologous Fresh Plasma into Peripheral Vein, Percutaneous Approach (ICD-10-PCS; 2025-05-09)
PROC: 06Q Lower Veins, Repair (ICD-10-PCS; 2025-05-10)
PROC: 0DH67UZ Insertion of Feeding Device into Stomach, Via Natural or Artificial Opening (ICD-10-PCS; 2025-05-10)
PROC: 0W3P0ZZ Control Bleeding in Gastrointestinal Tract, Open Approach (ICD-10-PCS; 2025-05-10)
PROC: 30233N1 Transfusion of Nonautologous Red Blood Cells into Peripheral Vein, Percutaneous Approach (ICD-10-PCS; 2025-05-10)
PROC: 0DJW0ZZ Inspection of Peritoneum, Open Approach (ICD-10-PCS; 2025-05-12)
PROC: 05HM33Z Insertion of Infusion Device into Right Internal Jugular Vein, Percutaneous Approach (ICD-10-PCS; 2025-05-12)
DX: A40.1 Sepsis due to streptococcus, group B (principal); G93.41 Metabolic encephalopathy; J96.00 Acute respiratory failure, unspecified whether with hypoxia or hypercapnia; I21.3 ST elevation (STEMI) myocardial infarction of unspecified site; K85.90 Acute pancreatitis without necrosis or infection, unspecified; K68.3 Retroperitoneal hematoma; K66.1 Hemoperitoneum; E87.20 Acidosis, unspecified; E87.1 Hypo-osmolality and hyponatremia; R45.851 Suicidal ideations; I16.1 Hypertensive emergency; N17.9 Acute kidney failure, unspecified; D62 Acute posthemorrhagic anemia; N39.0 Urinary tract infection, site not specified; R57.9 Shock, unspecified; K55.9 Vascular disorder of intestine, unspecified; R65.20 Severe sepsis without septic shock; I10 Essential (primary) hypertension; Z98.890 Other specified postprocedural states; M19.90 Unspecified osteoarthritis, unspecified site; Z90.49 Acquired absence of other specified parts of digestive tract; Z90.79 Acquired absence of other genital organ(s); Z90.81 Acquired absence of spleen; Z66 Do not resuscitate; Z88.5 Allergy status to narcotic agent; Z88.0 Allergy status to penicillin; Z88.1 Allergy status to other antibiotic agents; Z88.8 Allergy status to other drugs, medicaments and biological substances; F41.9 Anxiety disorder, unspecified; F32.A Depression, unspecified; R73.03 Prediabetes; E04.1 Nontoxic single thyroid nodule; M54.9 Dorsalgia, unspecified; Z98.84 Bariatric surgery status; D64.9 Anemia, unspecified; E66.01 Morbid (severe) obesity due to excess calories; R74.01 Elevation of levels of liver transaminase levels; E87.6 Hypokalemia; K20.90 Esophagitis, unspecified without bleeding; K44.9 Diaphragmatic hernia without obstruction or gangrene; E87.70 Fluid overload, unspecified; E83.39 Other disorders of phosphorus metabolism; Z79.899 Other long term (current) drug therapy
CPT/HCPCS: 36415; 36416; 36430; 36600; 71045; 71275; 74018; 74174; 74177; 74178; 76705; 80048; 80053; 80076; 80202; 80306; 81001; 82550; 82805; 83036; 83605; 83690; 83735; 84100; 84443; 84484; 84703; 85025; 85027; 85049; 85300; 85362; 85384; 85610; 85730; 86708; 86850; 86900; 86901; 87040; 87077; 87086; 87186; 87637; 93005; 93010; 93306; 94002; 94003; 96365; 96372; 96375; 96376; 97139; C1713; C1751; C1776; C1889; J0360; J0613; J0744; J1171; J1644; J1650; J1815; J1940; J2060; J2185; J2250; J2270; J2405; J2470; J2550; J2704; J2916; J3010; J3373; J3375; J3475; J3480; J7030; J7050; J7060; J7070; J7120; P9016; P9045; P9047; P9059; Q0162; Q9967